=== PATIENT | female | born 1995 | race Caucasian/White ===

== ENCOUNTER 2023-07-31 08:38 | Outpatient (AMB) | payer OTHER, SELFPAY ==
--- NOTE | 2023-07-31 08:40 | A.OFFPC_ITS ---
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 Required: No Allergies Sulfa (Sulfonamide Antibiotics) [SULFA (SULFONAMIDE ANTIBIOTICS)] Allergy (Unknown, Unverified 07/31/23 08:48) unk Sulfa Allergy (Intermediate, Uncoded 07/31/23 08:48) Hives Medication List - Last Reconciled 07/31/23 by SAEN Lovell bupropion HCl 150 mg PO QAM dextroamphetamine-amphetamine 10 mg 0.5 - 1 tabs PO BID gabapentin mg PO DAILY PRN sertraline mg PO DAILY Tobacco use date assessed: 07/31/23 Dental Screening Dental Screen Date: 07/31/23 Did you have a dental visit in the last 12 months?: Yes Did you have a dental problem in the last 6 months where you did not have access to dental care?: No Was dental information given to patient?: Patient has dentist HPI MOBILE APPLICATION TESTER/ Requesing Physical HPI Details Patient is a 27-year-old female who presents today for physical exam as a new patient. Patient reports no PCP for a while now. Medical history significant for PTSD, depression, anxiety, ADHD. Mental health medications are prescribed by psychotherapist Dr. Banks and patient also has a therapist. Patient denies SI. Patient reports normal Pap smear 2020 at [facility]. Patient reports dental and eye exam within past year. Patient denies shortness of breath or chest pain. 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 [facility] Surgical History [place] teeth removed Family History Mother Lupus Father No problems noted. Maternal Grandmother Lupus Social History Housing: Apartment Patient Tobacco Use Status: Never used Tobacco service: No Current occupational status: employed Cognitive needs: No Hearing needs: No Vision needs: No Questionnaire PHQ-9 Over the last 2 weeks, how often have you been bothered by any of the following problems? 1. Little interest or pleasure in doing things: not at all 2. Feeling down, depressed, or hopeless: not at all 3. Trouble falling or staying asleep, or sleeping too much: not at all 4. Feeling tired or having little energy: not at all 5. Poor appetite or overeating: not at all 6. Feeling bad about yourself - or that you are a failure or have let yourself or your family down: not at all 7. Trouble concentrating on things, such as reading the newspaper or watching television: not at all 8. Moving or speaking so slowly that other people could have noticed. Or the opposite - being so fidgety or restless that you have been moving around a lot more than usual: not at all 9. Thoughts that you would be better off or of hurting yourself in some way: not at all Total score: 0 Depression Screening Interpretation: Negative 93433 - PHQ-9 Billing: Yes Source: Developed by Drs. Memo Rea, Maya Jean Baptiste, Matthew Jameson and colleagues, with an educational tiffanie from [employer]. Thrive Questionnaire Date Thrive assessed: 07/31/23 I am a: Patient What is your living situation today?: I have a steady place to live Within the past 12 months, did the food you bought not last and you didn't have the money to get more?: Never true Within the past 12 months, did you worry whether your food would run out before you got money to buy more?: Never true Currently or been in a relationship where the following occur: no concerns reported AUDIT C Alcohol Use Questionnaire (AUDIT-C) 1. How often do you have a drink containing alcohol?: 2-3 times a week 2. How many drinks containing alcohol do you have on a typical day when you are drinking?: 1 or 2 3. How often do you have six or more drinks on one occasion?: Never Total Score: 3 Score Reviewed/Action Taken: No DESIRAE-7 AMB Questionnaire DESIRAE-7 Date DESIRAE - 7 assessed: 07/31/23 Feeling nervous, anxious, or on edge: 0 = Not at all Not being able to stop or control worryin = Not at all Worrying too much about different things: 0 = Not at all Trouble relaxin = Not at all Being so restless that it is hard to sit still: 0 = Not at all Becoming easily annoyed or irritable: 0 = Not at all Feeling afraid as if something awful might happen: 0 = Not at all Total DESIRAE-7 score (0-4 normal; 5-9 mild; 10-14 moderate; 15-21 severe): 0 Source: Developed by Drs. Memo Rea, Maya Jean Baptiste, Matthew Jameson and colleagues, with an educational tiffanie from [employer]. DESIRAE-7 Assessment Billing DESIRAE-7 Assessment Tool: DESIRAE-7 Assessment 63948 Review of Systems Const Denies body aches, Denies chills, Denies fever(s) and Denies headache(s) Eyes Denies change in vision ENT Denies dizziness, Denies otalgia, Denies headache(s), Denies nasal discharge, Denies sinus pain and Denies sore throat Card Denies chest pain, Denies edema, Denies lightheadedness and Denies dyspnea Resp Denies cough, Denies dyspnea and Denies wheezing GI Denies abdominal pain, Denies constipation, Denies diarrhea, Denies nausea and Denies vomiting Denies dysuria Musc Denies myalgias Skin/Breast Denies rash Neuro Denies dizziness and Denies headache(s) Aller/Immun Denies wheezing Physical exam (Primary Care) Vital Signs: Last Vital Signs Pulse 62 07/31/23 08:41 BP 112/60 07/31/23 08:41 Pulse Ox 99 07/31/23 08:41 Oxygen Delivery Method Room Air 07/31/23 08:41 BMI result Body Mass Index 29.3 Tobacco/Smoking Status: Tobacco use Status Tobacco use date assessed 07/31/23 07/31/23 08:48 Patient Tobacco Use Status Never used Tobacco 07/31/23 08:48 PHQ-9: PHQ-9 Score PHQ-9: Total score 0 07/31/23 08:48 Depression Screening Interpretation: Negative Thrive Assessment: Date of Thrive Assessment Date Thrive assessed 07/31/23 07/31/23 08:48 Currently or been in a relationship where the following occur: no concerns repo rted Const General: cooperative and no acute distress Orientation/consciousness: patient oriented x3 HENMT Head: Yes normocephalic and Yes atraumatic Ears: TM's normal bilaterally Face and sinus: Yes sinuses nontender Mouth: oropharynx normal and moist mucous membranes Throat: Yes posterior oropharynx normal Eyes General: appearance normal, both eyes and all related structures Pupils: Equal, round and reactive pupils present Neck Neck: Yes normal visual inspection, Yes full ROM and Yes no lymphadenopathy Thyroid: Thyroid normal Resp Effort & Inspection: normal respiratory effort and able to speak in complete sentences Auscultation: clear to auscultation bilaterally, no crackles, no rales, no rhonchi and no wheezes Cardio Rate: regular rate Rhythm: regular rhythm Heart sounds: S1 normal heart sound present, S2 normal heart sound present and no murmurs GI Palpation (GI): Soft to palpation, not firm, nontender, no guarding, not rigid and no hepatosplenomegaly Auscultation: normal bowel sounds General: No CVA tenderness Back/Spine/Pelvis Back: No CVA tenderness Skin General skin exam: no rashes or lesions noted Neuro General: patient oriented x3 Cranial nerves: Yes Equal, round and reactive pupils present Gait exam (Neuro): Normal gait present Extrem General: Yes full ROM and No edema Assessment and Plan Assessment & Plan (1) Adult general medical exam: Code(s): Z00.00 - Encounter for general adult medical examination without abnormal findings Plan: Repeat in 1 year Blood work ordered (2) ADHD: Code(s): F90.9 - Attention-deficit hyperactivity disorder, unspecified type Plan: Continue to follow-up with psychotherapist Dr. Banks who prescribes mental health medications Continue to follow-up therapist (3) Anxiety: Code(s): F41.9 - Anxiety disorder, unspecified Plan: Continue to follow-up with psychotherapist Dr. Banks who prescribes mental health medications Continue to follow-up therapist (4) Depression: Code(s): F32.A - Depression, unspecified Qualifiers: Depression Type: other depression Qualified Code(s): F32.89 - Other specified depressive episodes Plan: Continue to follow-up with psychotherapist Dr. Banks who prescribes mental health medications Continue to follow-up therapist (5) PTSD (post-traumatic stress disorder): Code(s): F43.10 - Post-traumatic stress disorder, unspecified Plan: Continue to follow-up with psychotherapist Dr. Banks who prescribes mental health medications Continue to follow-up therapist Orders: Orders Vitamin D 25-OH Total Today F32.A - Depression, unspecified Complete Blood Count Auto Diff Today F32.A - Depression, unspecified Vitamin B12 and Folate Today F32.A - Depression, unspecified TSH reflex Free T4 Today F32.A - Depression, unspecified Comprehensive Met. Panel Today F32.A - Depression, unspecified Coding Level of Care Code New Pt Prev Care 18-39yr([id number] Diagnoses Adult general medical exam Z00.00 ADHD F90.9 Anxiety F41.9 Other depression F32.89 Depression Type: other depression PTSD (post-traumatic stress disorder) F43.10 Additional Codes DESIRAE-7 Assessment Billing - DESIRAE-7 Assessment Tool: DESIRAE-7 Assessment 74188 ([id number])
[2023-07-31 08:41] VITALS: BP 112/60; PULSE 62; O2SAT 99; BMI 29.3
== END 2023-07-31 09:02 | disposition home or self-care (01) ==
PROVIDERS: PCP Nurse Practitioner Family; Visit Provider Nurse Practitioner Family
DX: Z00.00 Encounter for general adult medical examination without abnormal findings (principal); F90.9 Attention-deficit hyperactivity disorder, unspecified type; F41.9 Anxiety disorder, unspecified; F43.10 Post-traumatic stress disorder, unspecified; F32.89 Other specified depressive episodes
CPT/HCPCS: 99385

== ENCOUNTER 2024-08-04 16:06 | Outpatient (AMB) | payer BC, SELFPAY ==
--- NOTE | 2024-08-04 16:08 | A.OFFPC_ITS ---
Vital Signs 08/04/24 16:10 Height 5 ft Weight 146 lb 2 oz BMI 28.5 BP 136/74 Blood Pressure Location Lt brachial Position Sitting Pulse 63 Pulse Source Pulse Oximeter Pulse Oximetry (%) 98 Oxygen Delivery Method Room Air Intake Visit Reasons: PE Intake Note: Patient is here today for a physical. Cosmetic Sales Advisor Required: No Sales Development Executive: Not Required per policy Accompanied by: Self / Same As Patient Allergies Sulfa (Sulfonamide Antibiotics) [SULFA (SULFONAMIDE ANTIBIOTICS)] Allergy (Unknown, Verified 08/04/24 16:24) unk Sulfa Allergy (Intermediate, Uncoded 08/04/24 16:24) Hives Medication List - Last Reconciled 08/04/24 by Pema Warner PA-C bupropion HCl XL 150 mg PO QAM clonidine HCl ER 0.1 mg PO DAILY gabapentin 100 mg PO DAILY PRN sertraline 100 mg PO DAILY Tobacco use date assessed: 08/04/24 Dental Screening Dental Screen Date: 08/04/24 Did you have a dental visit in the last 12 months?: No Did you have a dental problem in the last 6 months where you did not have access to dental care?: No Was dental information given to patient?: No HPI PE HPI Details 28-year-old female with past medical his tory of PTSD, anxiety, depression, ADHD last seen by nurse practitioner coming to the office for her physical exam. Patient states she has been having a cough at night for the last 2-3 months and does eat around 1-2 hours before bed. She also wakes up in the morning with yellowish phlegm and has to cough in the morning as well. She would also like to see a sock knitting machine operator because she has multiple moles that she would like evaluated. She follows with [facility] for all of her psychiatric diagnosis and treatment. [facility] Surgical History [place] teeth removed Family History (Updated 08/04/24 @ 16:09 by DINORA Chang) Mother Lupus Father No problems noted. Maternal Grandmother Lupus Social History (Updated 08/04/24 @ 16:09 by DINORA Chang) Housing: Apartment Alcohol intake: never Patient Tobacco Use Status: Never used Tobacco e-Cigarette/Vaping Use: Never Used Second Hand Smoke Exposure: No service: No Current occupational status: employed Cognitive needs: No Hearing needs: No Vision needs: Yes (Glasses) Female Reproductive History Menstrual control method: none History of abnormal pap smear: No Questionnaire PHQ-9 Over the last 2 weeks, how often have you been bothered by any of the following problems? 1. Little interest or pleasure in doing things: not at all 2. Feeling down, depressed, or hopeless: not at all 3. Trouble falling or staying asleep, or sleeping too much: several days 4. Feeling tired or having little energy: several days 5. Poor appetite or overeating: not at all 6. Feeling bad about yourself - or that you are a failure or have let yourself or your family down: not at all 7. Trouble concentrating on things, such as reading the newspaper or watching television: several days 8. Moving or speaking so slowly that other people could have noticed. Or the opposite - being so fidgety or restless that you have been moving around a lot more than usual: not at all 9. Thoughts that you would be better off or of hurting yourself in some way: not at all Total score: 3 Depression Screening Interpretation: Positive Depression Screening Follow-up: Existing condition and In treatment Depression Screening Done: Yes Source: Developed by Drs. Memo Rea, Maya Jean Baptiste, Matthew Jameson and colleagues, with an educational tiffanie from [employer]. Thrive Questionnaire Date Thrive assessed: 08/04/24 I am a: Patient What is your living situation today?: I have a steady place to live Within the past 12 months, did the food you bought not last and you didn't have the money to get more?: Never true Within the past 12 months, did you worry whether your food would run out before you got money to buy more?: Never true Do you have trouble paying for medicines?: No Do you have trouble getting transportation to medical appointments?: No Do you have trouble paying your heating and electricity bill?: No Do you have trouble taking care of your child, family member or friend?: No Do you have trouble with day-to-day activities such as bathing, preparing meals, shopping, managing finances, etc.?: No Are you currently unemployed and looking for a job?: No Are you interested in more education?: No Please select the resources that you would like help with: None Currently or been in a relationship where the following occur: No concerns reported THRIVE Score: 0 AUDIT C Alcohol Use Questionnaire (AUDIT-C) 1. How often do you have a drink containing alcohol?: Monthly or less 2. How many drinks containing alcohol do you have on a typical day when you are drinking?: 1 or 2 3. How often do you have six or more drinks on one occasion?: Less than monthly Total Score: 2 DESIRAE-7 AMB Questionnaire DESIRAE-7 Date DESIRAE - 7 assessed: 08/04/24 Feeling nervous, anxious, or on edge: 1 = Several days Not being able to stop or control worryin = Several days Worrying too much about different things: 1 = Several days Trouble relaxin = Several days Being so restless that it is hard to sit still: 1 = Several days Becoming easily annoyed or irritable: 1 = Several days Feeling afraid as if something awful might happen: 0 = Not at all Total DESIRAE-7 score (0-4 normal; 5-9 mild; 10-14 moderate; 15-21 severe): 6 Source: Developed by Drs. Memo Rea, Maya Jean Baptiste, Matthew Jameson and colleagues, with an educational tiffanie from [employer]. DESIRAE-7 Assessment Billing DESIRAE-7 Assessment Tool: DESIRAE-7 Assessment 63031 Review of Systems Const Denies body aches, Denies fatigue, Denies fever(s), Denies frequent falls, Denies headache(s) and Denies weakness Eyes Reports no additional complaints and Denies change in vision ENT Denies dysphagia, Denies dizziness, Denies facial pain, Denies headache(s), Denies nasal congestion and Denies odynophagia Card Denies chest pain, Denies syncope, Denies irregular heart rhythm, Denies leg edema, Denies lightheadedness and Denies dyspnea Resp Reports cough (Nighttime), Denies hemoptysis and Denies dyspnea GI Denies constipation, Denies dysphagia, Denies dyspepsia, Denies diarrhea, Denies nausea, Denies odynophagia and Denies vomiting Denies urinary frequency, Denies dysuria, Denies urinary hesitancy and Denies urinary urgency Musc Denies back pain and Denies myalgias Skin/Breast Reports as per HPI Neuro Denies dizziness, Denies syncope, Denies frequent falls, Denies headache(s) and Denies weakness Psych Reports no additional complaints Endo Denies fatigue Physical exam (Primary Care) Vital Signs: Last Vital Signs Pulse 63 08/04/24 16:10 BP 136/74 08/04/24 16:10 Pulse Ox 98 08/04/24 16:10 Oxygen Delivery Method Room Air 08/04/24 16:10 BMI result Body Mass Index 28.5 Tobacco/Smoking Status: Tobacco use Status Tobacco use date assessed 08/04/24 08/04/24 16:15 Patient Tobacco Use Status Never used Tobacco 08/04/24 16:09 e-Cigarette/Vaping Use Never Used 08/04/24 16:15 PHQ-9: PHQ-9 Score PHQ-9: Total score 3 08/04/24 16:15 Depression Screening Interpretation: Positive Depression Screening Follow-up: Existing condition and In treatment Thrive Assessment: Date of Thrive Assessment Date Thrive assessed 08/04/24 08/04/24 16:15 Currently or been in a relationship where the following occur: No concerns reported Const General: cooperative, healthy appearing, comfortable and no acute distress Orientation/consciousness: patient oriented x3 HENMT Head: Yes normocephalic Ears: hearing grossly normal bilaterally, external ears normal, TM's normal bilaterally and EAC's normal General nose exam: Normal external nose present Face and sinus: Yes normal facial exam and Yes sinuses nontender Mouth: Normal oral and palatal mucosa present and tongue normal Throat: Yes posterior oropharynx normal Eyes General: appearance normal, both eyes and all related structures Conjunctivae: conjunctivae normal Pupils: Equal, round and reactive pupils present EOM: EOMs intact bilaterally and No Nystagmus present Neck Neck: Yes normal visual inspection, Yes full ROM and Yes no lymphadenopathy Chest Chest palpation & inspection: normal inspection of the chest Resp Effort & Inspection: normal respiratory effort Auscultation: clear to auscultation bilaterally, no crackles, no rales, no rhonchi, no wheezes and breath sounds present Cardio Rate: regular rate Rhythm: regular rhythm Peripheral pulses: radial pulses present and dorsalis pedis present GI Inspection: Yes normal to inspection and No Abdominal wall edema Palpation (GI): Soft to palpation, not firm and nontender Auscultation: normal bowel sounds Rectal Exam - Female: deferred General: Yes no CVA tenderness Back/Spine/Pelvis Back: no CVA tenderness Skin General skin exam: no rashes or lesions noted Neuro General: patient oriented x3 Cranial nerves: Yes Equal, round and reactive pupils present, Yes Midline tongue present, Yes Ability to bilaterally elevate shoulders present and No Nystagmus present Gait exam (Neuro): Normal gait present Extrem General: Yes normal to inspection, Yes full ROM, No no pedal edema and No edema Psych Speech and movement: Normal speech and movement present Affect: normal affect Insight: Good insight present (Psych) Judgement: Good judgement present (Psych) Assessment and Plan Assessment & Plan (1) Multiple nevi: Code(s): D22.9 - Melanocytic nevi, unspecified Plan: Referral to Dermatology placed today. (2) ADHD: Code(s): F90.9 - Attention-deficit hyperactivity disorder, unspecified type Plan: Continue to follow with [facility] continue on current med regimen. (3) Anxiety: Code(s): F41.9 - Anxiety disorder, unspecified Plan: Continue to follow with [facility] continue on current med regimen. (4) Depression: Code(s): F32.A - Depression, unspecified Qualifiers: Depression Type: other depression Qualified Code(s): F32.89 - Other specified depressive episodes Plan: Continue to follow with [facility] continue on current med regimen. (5) PTSD (post-traumatic stress disorder): Code(s): F43.10 - Post-traumatic stress disorder, unspecified Plan: Continue to follow with [facility] continue on current med regimen. (6) Adult general medical exam: Code(s): Z00.00 - Encounter for general adult medical examination without abnormal findings Plan: Patient is up-to-date on all recommended routine screenings and vaccinations for her age. Updated blood work ordered today. Follow up in 3 months for re- evaluation of medication. Referral placed for aviation mechanic for routine Pap smears today. (7) GERD (gastroesophageal reflux disease): Code(s): K21.9 - Gastro-esophageal reflux disease without esophagitis Plan: Nighttime cough in safemaker phlegm production is most consistent with GERD presentation. We will trial famotidine as needed or daily for symptom management. If symptoms do not improve we can consider PFTs to evaluate for possible asthma. Avoid trigger foods such as citrus, tomato products, soda, caffeine, spicy foods and other foods that may be irritating to your stomach. Avoid laying flat 3-4 hours after eating and elevate the head of the bed 30 degrees to prevent acid from moving into the esophagus. Plan This note was constructed using voice recognition software. While every effort has been made to ensure accuracy and crown perforator operator, still areas may have been included sometimes these areas may affect the content or meeting of the given symptoms. Total time spent caring for the patient today was 30 minutes. This includes time spent before the visit reviewing the chart, time spent during the visit, and time spent after the visit and documentation. Orders: Orders Complete Blood Count Auto Diff Today Z00.00 - Encounter for general adult medical examination without abnormal findings Free T4 (Free Thyroxine) Today Z00.00 - Encounter for general adult medical examination without abnormal findings Vitamin D 25-OH (D2 and D3) Today Z00.00 - Encounter for general adult medical examination without abnormal findings TSH reflex Free T4 Today Z00.00 - Encounter for general adult medical examination without abnormal findings Comprehensive Met. Panel Today Z00.00 - Encounter for general adult medical examination without abnormal findings Vitamin B12 and Folate Today Z00.00 - Encounter for general adult medical examination without abnormal findings Referrals Dermatology Referral D22.9 - Melanocytic nevi, unspecified ENGINEERING MATHEMATICIAN Referral Z00.00 - Encounter for general adult medical examination without abnormal findings Medications: New famotidine 10 mg PO BEDTIME 30 tabs 2RF Coding Level of Care Code Est Pt Level 3 (54634) Est Pt Prev Care 18-39y(32455) Diagnoses Multiple nevi D22.9 ADHD F90.9 Anxiety F41.9 Other depression F32.89 Depression Type: other depression PTSD (post-traumatic stress disorder) F43.10 Adult general medical exam Z00.00 GERD (gastroesophageal reflux disease) K21.9 Additional Codes DESIRAE-7 Assessment Billing - DESIRAE-7 Assessment Tool: DESIRAE-7 Assessment 52015 ([id number])
[2024-08-04 16:10] VITALS: BP 136/74; PULSE 63; O2SAT 98; BMI 28.5
== END 2024-08-04 16:36 | disposition home or self-care (01) ==
DX: Z00.00 Encounter for general adult medical examination without abnormal findings (principal); D22.9 Melanocytic nevi, unspecified; F90.9 Attention-deficit hyperactivity disorder, unspecified type; F41.9 Anxiety disorder, unspecified; F32.89 Other specified depressive episodes; F43.10 Post-traumatic stress disorder, unspecified; K21.9 Gastro-esophageal reflux disease without esophagitis

== ENCOUNTER → 2024-08-04 16:06 | Outpatient (BNVA) | payer BC, SELFPAY | DX: Z00.01 Encounter for general adult medical examination with abnormal findings (principal); K21.9 Gastro-esophageal reflux disease without esophagitis; D22.9 Melanocytic nevi, unspecified; F90.9 Attention-deficit hyperactivity disorder, unspecified type; F41.9 Anxiety disorder, unspecified; F32.89 Other specified depressive episodes; F43.10 Post-traumatic stress disorder, unspecified; Z79.899 Other long term (current) drug therapy | CPT/HCPCS: 96127 ==

== ENCOUNTER 2024-10-07 13:20 | Outpatient (AMB) | payer BC, SELFPAY ==
[2024-10-07 13:27] VITALS: BP 124/64; BMI 29.8
--- NOTE | 2024-10-07 13:27 | MHC.OFFVIS ---
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 She in a relationship with a partner for several years and has no worries about STDs is open to testing during this visit and will be going to the lab after this for general lab work and would like full STI testing as well. Currently she uses condoms for control I asked her if she would like plan B prescriptions sent to pharmacy and she very much would like that. She would not welcome a at this particular moment. She is open to talking about more reliable methods of control and she is heard of IUDs is considering. She does get pretty heavy crampy periods especially the 1st 3 days of 5. She tends to use menstrual cup or menstrual this and sometimes tampons to augment menstrual care.. She is healthy in shape. She moved to the [place] from [place] to [facility] and has stayed. She is active in her [employer]. 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 [facility] Surgical History [place] teeth removed Family History (Updated 08/04/24 @ 16:09 by DINORA Chang) Mother Lupus Father No problems noted. Maternal Grandmother Lupus Social History (Updated 08/04/24 @ 16:09 by DINORA Chang) Housing: Apartment Alcohol intake: never Patient Tobacco Use Status: Never used Tobacco e-Cigarette/Vaping Use: Never Used Second Hand Smoke Exposure: No service: No Current occupational status: employed Cognitive needs: No Hearing needs: No Vision needs: Yes (Glasses) Female Reproductive History Menstrual Age of Menarche: 15 Date of last menstrual period: 09/21/24 control method: none Total pregnancies: 0 History of abnormal pap smear: No History of STI: Yes (Genital warts, no positive HPV on pap) Physical Exam Vital Signs: Last Vital Signs BP 124/64 10/07/24 13:27 BMI result Body Mass Index 29.8 Const General: healthy appearing, comfortable, no acute distress, well developed and alert Nutritional Appearance: average body habitus Orientation/consciousness: patient oriented x3 Limitations: no limitations HEENT Head: Yes normocephalic Neck Neck: Yes normal visual inspection Chest Chest palpation & inspection: normal inspection of the chest Breast/axilla inspection: normal inspection of the breasts and normal inspection of the axillae Breast/axilla palpation: normal palpation of the breasts and normal palpation of the axillae Resp Effort & Inspection: normal respiratory effort GI Inspection: Yes normal to inspection, No Abdominal wall edema and No distended Palpation (GI): Soft to palpation and nontender Other: External within normal vagina is and moist. Cervix is nulliparous moist healthy normal mucus. Pap smear taken as well as testing for gonorrhea chlamydia trichomoniasis Nadia and BV. Cervix gapes slightly at external os cervix is long close thick nontender uterus difficult to feel completely probably midposition mobile nontender adnexa nontender no enlargement organs palpable good muscle tone. Good tone Kegel as well. General: Yes bladder normal to palpation External Female Exam: normal external appearance and normal appearance of the urethra Speculum Exam - Vagina: normal appearance of the vagina, normal palpation and normal vaginal discharge Speculum Exam - Cervix: normal appearance of the cervix, normal palpation and nontender Bimanual exam- vagina & uterus: normal bimanual exam, normal palpation, uterine size normal, bladder normal to palpation, consistency normal, normal palpation, uterine mobility normal, uterine shape normal, No Cervical tenderness present, non-tender and no cervical motion tenderness Bimanual Exam- Adnexa, other: normal adnexae, no masses, normal and No adnexal tenderness Neuro General: patient oriented x3 Assessment & Plan Assessment & Plan (1) Encounter for screening examination for sexually transmitted disease: Code(s): Z11.3 - Encounter for screening for infections with a predominantly sexual mode of transmission Category: Medical Plan -----Discussed in this visit the following: healthy balanced diet, regular and consistent exercise, getting recommended health screens, doing the best she can for her particular health concerns, kegel exercises, pap smear screening and followup recommendations, mammography screening and SBE, normal changes in cycles in her life stage--- .-I reviewed with the patient, all of the currently common used methods of control that are available. We reviewed how they work in the body, how they are taken, common side effects, uncommon side effects, precautions, and contraindications. -Discussed also factors that influence their effectiveness and use, and womens satisfaction with the method. -Discussed how each are used, and drawbacks of each method as well. -Methods covered included: condoms, control pills, control patches, control rings, Depo-Provera, Nexplanon, Mirena and Kyleena IUDs, and ParaGard IUDs. All of the above methods were covered in great detail including their side effect profiles and common experiences that women have and ways to mitigate against the negative experiences including attention to diet and exercise patient's with bleeding challenges that may occur her and efforts to time the initiation of the method to this start of the menstrual period. She maybe interested either Kyleena or she is going to think about it for a while for now I am sending prescription for Plan B to her pharmacy. Discussed that if she wanted either Kyleena or Mirena really would be helpful to insert it in the 1st 3 days of her period.. Most and discussed the physiological reasons for that that is uterus is already cramping cervix will be soften to allow passage of menses there were easier insertion instruments for insertion of the do. Discussed that is also maybe possible to consider prescription of misoprostol that she could place in vagina 6 hours prior to the planned insertion time, but this would be in addition to planning it in the 1st 3 days of her menses discussed also the even if she got her period called right away most likely have to be the day because of scheduling. She did share that she has decreased libido currently she thinks it is because of all of her antidepressants though she has been she is on the right dose for her. discussed that often times the hormonal methods control can also contribute to decreased libido though not as much as the antidepressants. Orders: Orders Bacterial Vaginosis Panel Today Z01.419 - Encounter for gynecological examination (general) (routine) without abnormal findings Pap Smear Today Z01.419 - Encounter for gynecological examination (general) (routine) without abnormal findings CT NG by PCR Today [id number] - Encounter for gynecological examination (general) (routine) without abnormal findings Hepatitis B Surface Antigen Today Z11.3 - Encounter for screening for infections with a predominantly sexual mode of transmission Hepatitis C Antibody Today Z11.3 - Encounter for screening for infections with a predominantly sexual mode of transmission HIV Ab/Ag Today Z11.3 - Encounter for screening for infections with a predominantly sexual mode of transmission Syphilis Screen Today Z11.3 - Encounter for screening for infections with a predominantly sexual mode of transmission Medications: New levonorgestrel (Plan B One-Step) 1.5 mg PO ONCE 1 tab 4RF Coding Level of Care Code New Pt Prev Care 18-39yr([id number] Diagnoses Encounter for screening examination for sexually transmitted disease Z11.3
== END 2024-10-07 14:33 | disposition home or self-care (01) ==
PROVIDERS: Visit Provider Advanced Practice Midwife
DX: Z01.419 Encounter for gynecological examination (general) (routine) without abnormal findings (principal); Z11.3 Encounter for screening for infections with a predominantly sexual mode of transmission
CPT/HCPCS: 99385

== ENCOUNTER 2024-10-07 13:20 | Outpatient (REF) | payer BC, SELFPAY ==
[2024-10-08 10:25] LABS: HPV 16,18/45 See PAP report
== END 2024-10-07 13:21 | disposition home or self-care (01) ==
LOC: HO.LNP 13:20
PROVIDERS: Visit Provider Advanced Practice Midwife
DX: Z01.419 Encounter for gynecological examination (general) (routine) without abnormal findings (principal); Z11.51 Encounter for screening for human papillomavirus (HPV)
CPT/HCPCS: 87624; 88175

== ENCOUNTER 2024-10-07 14:29 | Outpatient (REF) | payer BC, SELFPAY ==
[2024-10-07 16:33] LABS: MANUAL DIFF FLAG NO
[2024-10-07 16:41] LABS: Basophils Percent Auto 0.6 % (0-2); Eosinophils Absolute Auto 0.2 X10*3/uL (0.0-0.4); Eosinophils Percent Auto 3.2 % (0-4); Hematocrit 37.4 % (37.0-47.0); Hemoglobin 12.5 g/dl (12.0-16.0); Imm Gran Abs Auto 0.02 X10*3/uL (0.00-0.03); Imm Gran Pct Auto 0.3 % (0.0-0.4); Lymphocytes Absolute Auto 1.9 X10*3/uL (1.2-4.9); Lymphocytes Percent Auto 28.8 % (20-40); Mean Corpuscular HGB Conc 33.4 g/dl (31.0-35.0); Mean Corpuscular Hemoglobin 29.8 pg (27.0-33.0); Mean Corpuscular Volume 89.3 fL (80.0-98.0); Mean Platelet Volume 9.9 fL (9.4-12.3); Monocytes Absolute Auto 0.5 X10*3/uL (0.1-1.2); Monocytes Percent Auto 7.1 % (2-11); Neutrophils Absolute Auto 3.9 x10*3/uL (2.0-8.3); Platelet Count 260 X10*3/uL (160-400); Red Blood Count 4.19 X10*6/uL (4.20-5.50); Red Cell Distribution Width 12.5 % (11.0-16.0); White Blood Count 6.5 X10*3/uL (4.8-10.8)
[2024-10-07 17:20] LABS: Alanine Aminotransferase 19 U/L (0-31); Albumin Level 4.4 g/dL (3.5-5.0); Alkaline Phosphatase 86 U/L (39-117); Anion Gap 11 (12-20); Aspartate Amino Transferase 21 U/L (5-31); Bilirubin Total 0.5 mg/dL (0.0-1.0); Blood Urea Nitrogen 12 mg/dL (9-16); Calcium 10.1 mg/dL (8.4-10.2); Carbon Dioxide 29 mmol/L (22-29); Chloride 105 mmol/L (96-108); Estimated Glomerular Filt Rate > 60; Glucose Random 87 mg/dL (60-115); Potassium 4.2 mmol/L (3.3-5.1); Sodium 141 mmol/L (135-145); Total Protein 7.4 g/dL (6.5-8.0)
[2024-10-07 17:24] LABS: TSH reflex Free T4 1.39 uIU/mL (0.32-4.0)
[2024-10-07 17:29] LABS: Folate 9.5 ng/mL (> or = 4.0); Vitamin B12 1231 pg/mL (200-900)
[2024-10-08 03:59] LABS: Syphilis Screen Nonreactive (Nonreactive)
[2024-10-08 04:27] LABS: HBsAGNum1 0.38 S/CO (0.00-0.99); HIV AB/AG Nonreactive (Nonreactive); HIV Num 1 0.55 S/CO (0.00-0.99); Hepatitis B Surface Antigen Negative (Negative); ~Hepatitis C Antibody Nonreactive (Nonreactive)
[2024-10-08 07:12] LABS: CT PCR NOT DETECTED (Not Detect.); NG PCR NOT DETECTED (Not Detect.)
[2024-10-08 11:43] LABS: Bacterial Vaginosis PCR NEGATIVE (Negative); Candida Group PCR NOT DETECTED (Not Detect); Candida glab krusei PCR NOT DETECTED (Not Detect); Trichomonas vaginalis PCR NOT DETECTED (Not Detect)
[2024-10-12 16:22] LABS: Vitamin D 25-OH, D2 <4 ng/mL; Vitamin D 25-OH, D3 36 ng/mL; Vitamin D 25-OH, Total 36 ng/mL (30-100)
== END 2024-10-07 14:30 | disposition home or self-care (01) ==
LOC: HO.HHCL 14:29
PROVIDERS: Visit Provider Advanced Practice Midwife
DX: Z01.419 Encounter for gynecological examination (general) (routine) without abnormal findings (principal); Z11.3 Encounter for screening for infections with a predominantly sexual mode of transmission; Z87.42 Personal history of other diseases of the female genital tract
CPT/HCPCS: 0352U; 36415; 80053; 82306; 82607; 82746; 84439; 84443; 85025; 86780; 86803; 87340; 87389; 87491; 87591

== ENCOUNTER 2024-11-03 14:43 | Outpatient (AMB) | payer BC, SELFPAY ==
--- NOTE | 2024-11-03 14:49 | A.OFFPC_ITS ---
Vital Signs 11/03/24 14:51 Height 5 ft Weight 151 lb 2 oz BMI 29.5 BP 110/60 Blood Pressure Location Lt brachial Position Sitting Pulse 74 Pulse Source Pulse Oximeter Pulse Oximetry (%) 100 Oxygen Delivery Method Room Air Intake Visit Reasons: 3mth f/u Intake Note: Patient is here to follow up on GERD, ADHD. Pt decline flu shot today Candle Maker Required: No Bulb Planter: Not Required per policy Accompanied by: Self / Same As Patient Allergies Sulfa (Sulfonamide Antibiotics) [SULFA (SULFONAMIDE ANTIBIOTICS)] Allergy (Unknown, Verified 11/03/24 14:50) unk Sulfa Allergy (Intermediate, Uncoded 11/03/24 14:50) Hives Medication List - Last Reconciled 11/03/24 by Pema Warner PA-C bupropion HCl XL 150 mg PO QAM clonidine HCl ER 0.1 mg PO DAILY famotidine 10 mg PO BEDTIME gabapentin 100 mg PO DAILY PRN levonorgestrel (Plan B One-Step) 1.5 mg PO ONCE sertraline 100 mg PO DAILY Tobacco use date assessed: 11/03/24 Dental Screening Dental Screen Date: 08/04/24 HPI 3mth f/u HPI Details 29-year-old female with past medical his tory of PTSD, anxiety, depressi on, ADHD last seen July 2024 coming in for follow up.? At her last visit she was started on famotidine 10 mg for management GERD. Patient tells us today the famotidine has been helping with the reflux. Initially she was having a cough primarily at nights and in the mornings when she 1st woke up however now she finds she has a cough throughout the day when around allergens. She states when she is in old buildings or around note allergens she will have chest tightness and a cough along with shortness of breath that we will typically resolve with allergen being removed. [facility] Surgical History [place] teeth removed Family History Mother Lupus Father No problems noted. Maternal Grandmother Lupus Social History Housing: Apartment Alcohol intake: never Patient Tobacco Use Status: Never used Tobacco e-Cigarette/Vaping Use: Never Used Second Hand Smoke Exposure: No service: No Current occupational status: employed Cognitive needs: No Hearing needs: No Vision needs: Yes (Glasses) Female Reproductive History Menstrual Age of Menarche: 15 Questionnaire Thrive Questionnaire Date Thrive assessed: 08/04/24 I am a: Patient What is your living situation today?: I have a steady place to live Within the past 12 months, did the food you bought not last and you didn't have the money to get more?: Never true Within the past 12 months, did you worry whether your food would run out before you got money to buy more?: Never true Do you have trouble paying for medicines?: No Do you have trouble getting transportation to medical appointments?: No Do you have trouble paying your heating and electricity bill?: No Do you have trouble taking care of your child, family member or friend?: No Do you have trouble with day-to-day activities such as bathing, preparing meals, shopping, managing finances, etc.?: No Are you currently unemployed and looking for a job?: No Are you interested in more education?: No Please select the resources that you would like help with: None Currently or been in a relationship where the following occur: No concerns reported THRIVE Score: 0 DESIRAE-7 AMB Questionnaire DESIRAE-7 Date DESIRAE - 7 assessed: 08/04/24 Source: Developed by Drs. Memo Rea, Maya Jean Baptiste, Matthew Jameson and colleagues, with an educational tiffanie from [employer]. Review of Systems Const Denies body aches, Denies chills, Denies fever(s), Denies headache(s) and Denies poor appetite Eyes Reports no additional complaints ENT Denies dizziness and Denies headache(s) Card Details: Chest tightness around allergens Denies chest pain, Denies syncope, Denies edema, Denies irregular heart rhythm, Denies lightheadedness and Reports dyspnea (Occasional) Resp Reports cough and Reports dyspnea (Occasional) GI Denies nausea and Denies vomiting Reports no additional complaints Musc Reports no additional complaints and Denies abnormal gait Skin/Breast Reports system reviewed and no additional complaints, except as documented Neuro Denies abnormal gait, Denies dizziness, Denies syncope and Denies headache(s) Psych Reports no additional complaints Physical exam (Primary Care) Vital Signs: Last Vital Signs Pulse 74 11/03/24 14:51 BP 110/60 11/03/24 14:51 Pulse Ox 100 11/03/24 14:51 Oxygen Delivery Method Room Air 11/03/24 14:51 BMI result Body Mass Index 29.5 Tobacco/Smoking Status: Tobacco use Status Tobacco use date assessed 11/03/24 11/03/24 14:55 Patient Tobacco Use Status Never used Tobacco 11/03/24 14:55 e-Cigarette/Vaping Use Never Used 11/03/24 14:55 Thrive Assessment: Date of Thrive Assessment Date Thrive assessed 08/04/24 11/03/24 14:55 Currently or been in a relationship where the following occur: No concerns reported Const General: cooperative, healthy appearing, comfortable and no acute distress Orientation/consciousness: patient oriented x3 HENMT Head: Yes normocephalic Ears: hearing grossly normal bilaterally General nose exam: Normal external nose present Eyes General: appearance normal, both eyes and all related structures Conjunctivae: conjunctivae normal Neck Neck: Yes full ROM and Yes no lymphadenopathy Resp Effort & Inspection: normal respiratory effort Auscultation: clear to auscultation bilaterally, no crackles, no rales, no rhonchi and no wheezes Cardio Rate: regular rate Rhythm: regular rhythm Skin General skin exam: no rashes or lesions noted Neuro General: patient oriented x3 Gait exam (Neuro): Normal gait present Extrem General: Yes normal to inspection, Yes full ROM and No edema Psych Affect: normal affect Attitude: cooperative Insight: Good insight present (Psych) Judgement: Good judgement present (Psych) Coding Level of Care Code Est Pt Level 3 (18737) Diagnoses Chronic cough R05.3 GERD (gastroesophageal reflux disease) K21.9 Anxiety F41.9 Assessment & Plan Assessment & Plan (1) Chronic cough: Code(s): R05.3 - Chronic cough Category: Medical Plan: Cough consistent with possible asthma. Ordered for pulmonary function testing and sent rescue inhaler in the event patient has shortness of breath that does not resolve. Advised patient to take [id number] antihistamine daily to prevent coughing attacks. Reviewed red flag symptoms and when to present for re-evaluation. Also sent referral for allergy testing. (2) GERD (gastroesophageal reflux disease): Code(s): K21.9 - Gastro-esophageal reflux disease without esophagitis Category: Medical Plan: Avoid trigger foods such as citrus, tomato products, soda, caffeine, spicy foods and other foods that may be irritating to your stomach. Avoid laying flat 3-4 hours after eating and elevate the head of the bed 30 degrees to prevent acid from moving into the esophagus. Continue on famotidine. Feels her symptoms have improved at this time. (3) Anxiety: Comment: Owen Psych Code(s): F41.9 - Anxiety disorder, unspecified Category: Medical Plan: Continue to follow with numerous Psychiatry and counselor and continue on current medication. Plan This note was constructed using voice recognition software. While every effort has been made to ensure accuracy and kickboxing instructor, still areas may have been included sometimes these areas may affect the content or meeting of the given symptoms. Total time spent caring for the patient today was 20 minutes. This includes time spent before the visit reviewing the chart, time spent during the visit, and time spent after the visit and documentation. Orders: Orders PFT pulmonary function test Today R05.3 - Chronic cough Referrals Allergy & Immunology Referral R05.3 - Chronic cough Medications: New albuterol sulfate 90 mcg/actuation 1 inh inhalation QID PRN 6.7 grams 0RF shortness of breath or wheezing fexofenadine 180 mg PO DAILY 30 tabs 2RF
[2024-11-03 14:51] VITALS: BP 110/60; PULSE 74; O2SAT 100; BMI 29.5
== END 2024-11-03 15:28 | disposition home or self-care (01) ==
DX: R05.3 Chronic cough (principal); K21.9 Gastro-esophageal reflux disease without esophagitis; F41.9 Anxiety disorder, unspecified

== ENCOUNTER 2024-12-10 14:45 | Outpatient (REF) | payer BC, SELFPAY ==
--- NOTE | 2024-12-10 14:57 | PFT_ITS ---
Indication: Cough Spirometry [FEV1 to FVC 66% pre bronchodilators and 75% post bronchodilators. FEV1 3.2 L; FVC 4.25 L. There was a significant response to bronchodilators noted.] Lung Volumes [Total lung capacity 115% predicted; residual volume 92% predicted] Diffusion Capacity [DLCO 96% predicted] Comparisons [none] Interpretation [There is a reversible obstructive ventilatory defect consistent with diagnosis of asthma. Significant response to bronchodilators noted. Significant small airways disease noted again due to small airways disease from asthma. Lung volumes demonstrated trend of hyperinflation due to the small airways disease. Diffusing capacity is within normal limits.] MTDD
== END 2024-12-10 14:46 | disposition home or self-care (01) ==
LOC: HO.RESP 14:45
DX: R05.3 Chronic cough (principal)
CPT/HCPCS: 94010; 94640; 94727; 94729

== ENCOUNTER → 2024-12-10 14:57 | Outpatient (BNV) | payer BC, SELFPAY | PROVIDERS: Visit Provider Hospitalist | DX: R05.3 Chronic cough (principal) | CPT/HCPCS: 94060; 94727; 94729 ==

== ENCOUNTER 2024-12-14 21:40 | Emergency (ER) | payer BC, SELFPAY ==
--- NOTE | ~2024-12-14 | XR_ITS ---
CLINICAL HISTORY: dyspnea cough congestion 2 view chest x-ray Comparison: None Findings: No consolidation or effusion. Heart size is normal. No acute fracture. IMPRESSION: 1. No acute findings. This document has been electronically signed by: Suzan Lopes MD on 12/14/2024 22:57:05
[2024-12-14 21:48] VITALS: BP 119/53; PULSE 73; RESP 20; TEMP 37.1; O2SAT 95; BMI 28.9
[2024-12-14 22:39] LABS: IDNOW Serial# 6674DD1D; Strep A Nucleic Acid Negative (Negative)
[2024-12-14 22:50] LABS: Influenza A PCR NEGATIVE (Negative); Influenza B PCR NEGATIVE (Negative); Resp Syncy Virus RNA Qual PCR NEGATIVE (Negative); SARS COV2 PCR INHOUSE NEGATIVE (Negative)
--- NOTE | 2024-12-15 01:59 | ED_ITS ---
HPI - General Adult General Chief complaint: Upper Respiratory Symptoms Stated complaint: sob,congested cough/asthma Time Seen by Provider: 12/15/24 01:08 Source: patient Limitations: no limitations History of Present Illness ED Provider: Sugar White PA-C HPI narrative: 29-year-old female with a new diagnosis of asthma, presents with worsening viral symptoms over the past 3-4 days. Patient states over the past month, she has had constant nasal congestion, dry cough with wheezing. She was seen by primary care, had pulmonary function testing, she was diagnosed with asthma. She uses an albuterol rescue inhaler and a daily inhaled steroid. Over the past 4 days, she has been having to use her albuterol more frequently than is instructed. Denies fever. 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 Data Home Medications ?Medication ?Instructions ?Recorded ?Confirmed bupropion HCl 150 mg 24 hr tablet, 150 mg PO QAM 07/31/23 11/03/24 extended release clonidine HCl 0.1 mg 0.1 mg PO DAILY 08/04/24 11/03/24 tablet,extended release,12 hr gabapentin 100 mg capsule 100 mg PO DAILY PRN 08/04/24 11/03/24 sertraline 100 mg tablet 100 mg PO DAILY 08/04/24 11/03/24 Previous Rx's ?Medication ?Instructions ?Recorded famotidine 10 mg tablet 10 mg PO BEDTIME #30 tabs 08/04/24 levonorgestrel 1.5 mg tablet (Plan 1.5 mg PO ONCE #1 tab 10/07/24 B One-Step) albuterol sulfate 90 mcg/actuation 1 inh inhalation QID PRN shortness 11/03/24 aerosol inhaler of breath or wheezing #6.7 grams fluticasone propionate 44 1 puff inhalation BID #10.6 grams 12/11/24 mcg/actuation HFA aerosol inhaler loratadine 10 mg capsule (Allergy 10 mg PO DAILY #90 caps 12/11/24 Relief (loratadine)) prednisone 20 mg tablet 40 mg (2 x 20 mg) PO DAILY #8 tabs 12/15/24 Allergies Allergy/AdvReac Type Severity Reaction Status Date / Time Sulfa (Sulfonamide Allergy Unknown unk Verified 12/14/24 21:50 Antibiotics) [SULFA (SULFONAMIDE ANTIBIOTICS)] Sulfa Allergy Intermediate Hives Uncoded 11/03/24 14:50 Review of Systems Review of Systems: Yes all other systems are reviewed and are negative Constitutional: Constitutional: Denies fatigue and Denies fever(s) ENT: Reports nasal congestion Cardiovascular: Cardiovascular: Denies chest pain and Denies dyspnea Respiratory: Respiratory: Denies chest congestion, Reports cough, Denies dyspnea and Reports wheezing Gastrointestinal: Gastrointestinal: Denies nausea and Denies vomiting Endocrine: Endocrine: Denies fatigue Allergic/Immunologic: Allergic/Immunologic: Reports wheezing PMFSH Past Medical History Attestation statement: The following information was validated with the patient. Surgical History [place] teeth removed Family History Family History Mother Lupus Father No problems noted. Maternal Grandmother Lupus Social History Social History Housing: Apartment Alcohol intake: never Patient Tobacco Use Status: Never used Tobacco e-Cigarette/Vaping Use: Never Used Second Hand Smoke Exposure: No Advance Directives: No Advance Directives Information Provided: Yes Do you have a plan to hurt others: No Plan service: No Current occupational status: employed Cognitive needs: No Hearing needs: No Vision needs: Yes (Glasses) Physical Exam ED Vital Signs: Vital Signs - 24 hr 12/14/24 21:48 12/15/24 02:06 Temperature 98.8 F Pulse Rate 73 73 Respiratory Rate 20 20 Blood Pressure 119/53 L Pulse Oximetry 95 Oxygen Delivery Method Room Air BMI result Body Mass Index 28.9 Const Other: Alert well-appearing Orientation/consciousness: patient oriented x3 Resp Other: Nonlabored respirations, faint , scan expiratory wheezes noted posterior bee Cardio Other: Normal peripheral perfusion Skin Other: Warm dry no rash Neuro General: patient oriented x3, no focal motor deficits and CN's II-XI intact bilaterally Psych Other: Calm Medications Administered Discontinued Medications Generic Name Dose Route Start Last Admin Trade Name Freq PRN Reason Stop Dose Admin Albuterol Sulfate 7.5 mg 12/15/24 01:58 12/15/24 02:05 Albuterol Sulfate (0.083%) 2.5 Mg/3 Ml Vial.Neb INHALE 12/15/24 01:59 7.5 mg ONCE ONE Administration Medical Decision Making Medical Decision Making MDM Narrative: 29-year-old female with a new diagnosis of asthma, presents with worsening viral symptoms over the past 3-4 days. Patient states over the past month, she has had constant nasal congestion, dry cough with wheezing. She was seen by primary care, had pulmonary function testing, she was diagnosed with asthma. She uses an albuterol rescue inhaler and a daily inhaled steroid. Over the past 4 days, she has been having to use her albuterol more frequently than is instructed. Denies fever. 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 Problem: New asthma History: Per patient I have considered the following differential diagnoses: Asthma exacerbation, viral syndrome, pneumonia Plan: Here with a mild asthma exacerbation. Viral panel and chest x-ray were obtained from triage. We will give an updraft, send with a steroid for her to start in the morning. I have independently reviewed the following tests: Labs: Viral panel next Chest x-ray:indings: No consolidation or effusion. Heart size is normal. No acute fracture. IMPRESSION: 1. No acute findings. This document has been electronically signed by: Suzan Lopes MD on 12/14/2024 22:57:05 Lab Data Labs: Lab Results 12/14/24 Range/Units 22:03 Influenza Type A (PCR) NEGATIVE (Negative) Influenza Type B (PCR) NEGATIVE (Negative) RSV RNA Qual (PCR) NEGATIVE (Negative) SARS-CoV-2 RNA (RT-PCR) NEGATIVE (Negative) S. pyogenes GrpA RENETTA Negative (Negative) Discharge Plan Discharge Clinical Impression: Asthma exacerbation Patient Disposition: Home, Self-Care Instructions: Asthma (ED) Additional Instructions: You are being treated for a mild asthma exacerbation. See home care instructions. Use your albuterol as directed. Take the steroid as directed, take it in the morning. You were screened for influenza a and B, RSV and COVID, the viral panel was negative. The chest x-ray is clear you do not have pneumonia. For your ongoing nasal congestion, a cool mist humidifier may help to alleviate the congestion. You could also use [id number] saline nasal sprays. Follow up with your primary care provider as needed. Prescriptions: New prednisone 20 mg tablet 40 mg PO DAILY Qty: 8 0RF No Action fluticasone propionate 44 mcg/actuation HFA aerosol inhaler 1 puff inhalation BID Qty: 10.6 2RF Rx Instructions: administer with spacer Allergy Relief (loratadine) 10 mg capsule 10 mg PO DAILY Qty: 90 2RF bupropion HCl 150 mg tablet extended release 24 hr 150 mg PO QAM gabapentin 100 mg capsule 100 mg PO DAILY PRN sertraline 100 mg tablet 100 mg PO DAILY clonidine HCl 0.1 mg tablet extended release 12 hr 0.1 mg PO DAILY famotidine 10 mg tablet 10 mg PO BEDTIME Qty: 30 2RF levonorgestrel [Plan B One-Step] 1.5 mg tablet 1.5 mg PO ONCE Qty: 1 4RF albuterol sulfate 90 mcg/actuation HFA aerosol inhaler 1 inh inhalation QID PRN (Reason: shortness of breath or wheezing) Qty: 6.7 0RF Stand Alone Forms: Work/School Release Print Language: Cypriot
[2024-12-15] MEDS: Albuterol Sulfate (0.083%) 2.5 MG/3 ML VIAL.NEB 7.5 MG INHALE (02:05)
[2024-12-15 02:06] VITALS: PULSE 73; RESP 20; O2SAT 98
[2024-12-15 02:56] VITALS: BP 00/00; PULSE 0; RESP 0; TEMP -17.7; TEMP 0
== END 2024-12-15 02:56 | disposition home or self-care (01) ==
PROVIDERS: Emergency Provider Emergency Medicine
DX: J45.901 Unspecified asthma with (acute) exacerbation (principal); Z03.818 Encounter for observation for suspected exposure to other biological agents ruled out
CPT/HCPCS: 0241U; 71046; 87651; 94640; 94664; 99283; 99284

== ENCOUNTER → 2024-12-14 22:20 | Outpatient (BNV) | payer BC, SELFPAY | PROVIDERS: Visit Provider Radiology Diagnostic Radiology | DX: R06.00 Dyspnea, unspecified (principal); R05.9 Cough, unspecified | CPT/HCPCS: 71046 ==

== ENCOUNTER 2025-01-04 15:27 | Outpatient (AMB) | payer BC, SELFPAY ==
--- OUTSIDE RECORDS SUMMARY | 2025-01-04 15:29 | XMS_ITS | Clinical Summary ---
Author Organization [facility] Address [address] [place] [address] Care Team Providers Care Workday Consultant Name Role Phone Unavailable Primary Care Provider Unavailabl e Social History Tobacco Use Types Packs/Day Years Used Date Smoking Tobacco: Never Assessed Comments Unknown Sex and Gender Information Value Date Recorded Sex Assigned at Not on file Legal Sex Female 1:16 PM EST Gender Identity Not on file Sexual Orientation Not on file Plan of Treatment Health Maintenance Due Date Last Done Comments DTaP,Tdap,and Td Vaccines (1 - Tdap) 2016 Hepatitis B Vaccines (1 of 3 - 19+ 3-dose series) 2016 Cervical Cancer Screening: P ap Smear 2018 COVID-19 Vaccine ( - 2023-2 5 season) 2024 Influenza Vaccine (#1) 2024 HIB Vaccines Aged Out No longer eligi ble based on patient's age to complete this topic HPV Vaccines Aged Out No longer eligi ble based on patient's age to complete this topic Hepatitis A Vaccines Aged Out No long er eligible based on patient's age to complete this topic IPV Vaccines Aged Out No longer eligi ble based on patient's age to complete this topic MMR Vaccines Aged Out No longer eligi ble based on patient's age to complete this topic Meningococcal ACWY Vaccine Aged Out N o longer eligible based on patient's age to complete this topic Meningococcal B Vacine Aged Out No lo nger eligible based on patient's age to complete this topic Pneumococcal Vaccine: Pediat rics (0 to 5 Years) and At-Risk Patients (6 to 64 Years) Aged Out No longer eligible b ased on patient's age to complete this topic RSV Immunization Patients Un steve 20 months Aged Out No longer eligible b ased on patient's age to complete this topic Varicella Vaccines Aged Out No longer eligible based on patient's age to complete this topic
--- NOTE | 2025-01-04 15:44 | MHC.PC.OV ---
Vital Signs 01/04/25 15:46 Height 5 ft Weight 148 lb 4 oz BMI 28.9 BP 120/80 Blood Pressure Location Lt brachial Position Sitting Pulse 64 Pulse Source Pulse Oximeter Temp 97.3 F Temp Source Temporal Artery Scan Pulse Oximetry (%) 98 Oxygen Delivery Method Room Air Intake Visit Reasons: f/u asthma Intake Note: Patient is here to follow up on Asthma. Deputy K 9 Required: No Kitchen Food Server: Not Required per policy Accompanied by: Self / Same As Patient Allergies Sulfa (Sulfonamide Antibiotics) [SULFA (SULFONAMIDE ANTIBIOTICS)] Allergy (Unknown, Verified 01/04/25 15:46) unk Sulfa Allergy (Intermediate, Uncoded 01/04/25 15:46) Hives Medication List - Last Reconciled 01/04/25 by Pema Warner PA-C albuterol sulfate 90 mcg/actuation 1 inh inhalation QID PRN bupropion HCl XL 150 mg PO QAM clonidine HCl ER 0.1 mg PO DAILY famotidine 10 mg PO BEDTIME fluticasone propionate 44 mcg/actuation 1 puff inhalation BID gabapentin 100 mg PO DAILY PRN levonorgestrel (Plan B One-Step) 1.5 mg PO ONCE loratadine (Allergy Relief (loratadine)) 10 mg PO DAILY sertraline 100 mg PO DAILY Tobacco use date assessed: 01/04/25 Dental Screening Dental Screen Date: 01/04/25 Did you have a dental visit in the last 12 months?: No Did you have a dental problem in the last 6 months where you did not have access to dental care?: No Was dental information given to patient?: Patient has dentist HPI f/u asthma HPI Details 29-year-old female with past medical history of PTSD, asthma, anxiety, depression, ADHD last seen October 2024 coming in for follow up.? In review of the notes, patient was seen in [facility] 12/15/2024 for asthma exacerbation given prednisone and advised his follow with albuterol as needed and schedule ICS. Presenting with sinus congestion and asthma management. She reports a history of asthma, which is now well-controlled with the use of a steroid inhaler. She has not felt the need to use an emergency Albuterol inhaler in the last two weeks. The patient is experiencing significant sinus congestion for a couple of weeks, impacting her daily activities, and has been unresponsive to nasal sprays and allergy medications. [facility], [facility] Surgical History [place] teeth removed Family History Mother Lupus Father No problems noted. Maternal Grandmother Lupus Social History Housing: Apartment Alcohol intake: never Patient Tobacco Use Status: Never used Tobacco e-Cigarette/Vaping Use: Never Used Second Hand Smoke Exposure: No service: No Current occupational status: employed Cognitive needs: No Hearing needs: No Vision needs: Yes (Glasses) Female Reproductive History Menstrual Age of Menarche: 15 Questionnaire PHQ-9 Over the last 2 weeks, how often have you been bothered by any of the following problems? 1. Little interest or pleasure in doing things: not at all 2. Feeling down, depressed, or hopeless: not at all 3. Trouble falling or staying asleep, or sleeping too much: not at all 4. Feeling tired or having little energy: not at all 5. Poor appetite or overeating: not at all 6. Feeling bad about yourself - or that you are a failure or have let yourself or your family down: not at all 7. Trouble concentrating on things, such as reading the newspaper or watching television: not at all 8. Moving or speaking so slowly that other people could have noticed. Or the opposite - being so fidgety or restless that you have been moving around a lot more than usual: not at all 9. Thoughts that you would be better off or of hurting yourself in some way: not at all Total score: 0 Depression Screening Interpretation: Negative Depression Screening Done: Yes Source: Developed by Drs. Memo Rea, Maya Jean Baptiste, Matthew Jameson and colleagues, with an educational tiffanie from [employer]. Thrive Questionnaire Date Thrive assessed: 01/04/25 AUDIT C Alcohol Use Questionnaire (AUDIT-C) 1. How often do you have a drink containing alcohol?: Monthly or less 2. How many drinks containing alcohol do you have on a typical day when you are drinking?: 1 or 2 Total Score: 1 DESIRAE-7 AMB Questionnaire DESIRAE-7 Date DESIRAE - 7 assessed: 01/04/25 Feeling nervous, anxious, or on edge: 0 = Not at all Not being able to stop or control worryin = Not at all Worrying too much about different things: 0 = Not at all Trouble relaxin = Not at all Being so restless that it is hard to sit still: 0 = Not at all Becoming easily annoyed or irritable: 0 = Not at all Feeling afraid as if something awful might happen: 0 = Not at all Total DESIRAE-7 score (0-4 normal; 5-9 mild; 10-14 moderate; 15-21 severe): 0 Source: Developed by Drs. Memo Rea, Maya Jean Baptiste, Matthew Jameson and colleagues, with an educational tiffanie from [employer]. Review of Systems Const Denies body aches, Denies chills, Denies fever(s), Denies headache(s) and Denies poor appetite Eyes Reports no additional complaints ENT Denies dysphagia, Denies dizziness, Denies headache(s) and Denies odynophagia Card Denies chest pain, Denies syncope, Denies edema, Denies irregular heart rhythm, Denies lightheadedness and Denies dyspnea Resp Denies cough and Denies dyspnea GI Denies abdominal pain, Denies constipation, Denies dysphagia, Denies diarrhea, Denies nausea, Denies odynophagia and Denies vomiting Reports no additional complaints Musc Reports no additional complaints and Denies abnormal gait Skin/Breast Reports system reviewed and no additional complaints, except as documented Neuro Denies abnormal gait, Denies dizziness, Denies syncope and Denies headache(s) Psych Reports no additional complaints Physical exam (Primary Care) Vital Signs: Last Vital Signs Temp 97.3 F 01/04/25 15:46 Pulse 64 01/04/25 15:46 BP 120/80 01/04/25 15:46 Pulse Ox 98 01/04/25 15:46 Oxygen Delivery Method Room Air 01/04/25 15:46 BMI result Body Mass Index 28.9 Tobacco/Smoking Status: Tobacco use Status Tobacco use date assessed 01/04/25 01/04/25 15:50 Patient Tobacco Use Status Never used Tobacco 01/04/25 15:50 e-Cigarette/Vaping Use Never Used 01/04/25 15:50 PHQ-9: PHQ-9 Score PHQ-9: Total score 0 01/04/25 15:51 Depression Screening Interpretation: Negative Thrive Assessment: Date of Thrive Assessment Date Thrive assessed 01/04/25 01/04/25 15:50 Const General: cooperative, healthy appearing, comfortable and no acute distress Orientation/consciousness: patient oriented x3 HENMT Head: Yes normocephalic Ears: hearing grossly normal bilaterally General nose exam: Normal external nose present Eyes General: appearance normal, both eyes and all related structures Conjunctivae: conjunctivae normal Neck Neck: Yes full ROM and Yes no lymphadenopathy Resp Effort & Inspection: normal respiratory effort Auscultation: clear to auscultation bilaterally, no crackles, no rales, no rhonchi and no wheezes Cardio Rate: regular rate Rhythm: regular rhythm Skin General skin exam: no rashes or lesions noted Neuro General: patient oriented x3 Gait exam (Neuro): Normal gait present Extrem General: Yes normal to inspection, Yes full ROM and No edema Psych Affect: normal affect Attitude: cooperative Insight: Good insight present (Psych) Judgement: Good judgement present (Psych) Coding Level of Care Code Est Pt Level 3 (32136) Diagnoses GERD (gastroesophageal reflux disease) K21.9 Anxiety F41.9 Asthma J45.909 Acute sinusitis J01.90 Assessment & Plan Assessment & Plan (1) GERD (gastroesophageal reflux disease): Code(s): K21.9 - Gastro-esophageal reflux disease without esophagitis Category: Medical Plan: Avoid trigger foods such as citrus, tomato products, soda, caffeine, spicy foods and other foods that may be irritating to your stomach. Avoid laying flat 3-4 hours after eating and elevate the head of the bed 30 degrees to prevent acid from moving into the esophagus. No longer using famotidine. (2) Anxiety: Comment: [place] Psych Code(s): F41.9 - Anxiety disorder, unspecified Category: Medical Plan: Feels stable on sertraline and Wellbutrin. (3) Asthma: Code(s): J45.909 - Unspecified asthma, uncomplicated Category: Medical Plan: Asthma currently controlled on present medications. Continue on inhaled corticosteroid and albuterol as needed.. Avoid triggers such as allergies. (4) Acute sinusitis: Code(s): J01.90 - Acute sinusitis, unspecified Category: Medical Plan: Patient having worsening congestion over the last 3 weeks not responsive to saline spray or sinus rinses. The patient received a prescription for a Z-Tj to address her sinus infection and was encouraged to continue current supportive therapies. She is advised to remain in communication should symptoms persist or worsen. Plan This note was constructed using voice recognition software. While every effort has been made to ensure accuracy and etcher machine, still areas may have been included sometimes these areas may affect the content or meeting of the given symptoms. Total time spent caring for the patient today was 20 minutes. This includes time spent before the visit reviewing the chart, time spent during the visit, and time spent after the visit and documentation. Medications: New azithromycin For 500 mg dose pack: take 500 mg once daily for 3 days PO 3 tabs 0RF
[2025-01-04 15:46] VITALS: BP 120/80; PULSE 64; TEMP 36.3; O2SAT 98; BMI 28.9
== END 2025-01-04 16:07 | disposition home or self-care (01) ==
DX: K21.9 Gastro-esophageal reflux disease without esophagitis (principal); F41.9 Anxiety disorder, unspecified; J45.909 Unspecified asthma, uncomplicated; J01.90 Acute sinusitis, unspecified

== ENCOUNTER 2025-06-17 15:32 | Outpatient (AMB) | payer BC, SELFPAY ==
--- OUTSIDE RECORDS SUMMARY | 2025-06-17 15:37 | XMS_ITS | Clinical Summary ---
Author Organization [facility] ity Address [address] [place] [address] Care Team Providers Care Historical Society Director Name Role Phone Unavailable Primary Care Provider [...] Vaccine ( - 2023-2 5 season) 2024 Depression Screening 11/18/2024 Influenza Vaccine (#1) 2025 HIB Vaccines Aged Out No longer eligi [...] age to complete this topic Meningococcal B Vaccine Aged Out No l onger eligible based on patient's age to complete this topic Pneumococcal Vaccine: Pediat rics (0 to 5 Years) and At-Risk Patients (6 to 49 Years) Aged Out No longer eligible b ased on patient's age to complete this topic RSV Immunization Patients Un steve 20 months Aged Out No longer eligible b ased on patient's age to complete this topic Varicella Vaccines Aged Out No longer eligible based on patient's age to complete this topic
--- OUTSIDE RECORDS SUMMARY | 2025-06-17 15:37 | XMS_ITS | Clinical Summary ---
Author Organization [facility] Address [address] [place] [id number] Phone Care Team Providers Care Clinical Systems Educator Name Role Phone Unknown, Unknown Primary Care Provider Lio watt Allergies Active Allergy Reactions Criticality Noted Date Comments Sulfa (Sulfonamide Antibiotics) 04/2018 Medications busPIRone (BUSPAR) 5 MG tablet Take 5 mg by mouth 3 (three) times a day. Active HYDROXYZINE HCL ORAL daily as needed. Active butalbital-acet aminophen-caffe ine-codeine (FIORICET WITH CODEINE) [id number] mg Cap Take 1 capsule by mouth every 4 (four) hours as needed. 15 capsule 02/21/2018 Active Active Problems No known active problems Social History Tobacco Use Types Packs/Day Years Used Date Smoking Tobacco: Never Smokeless Tobacco: Never Alcohol Use Standard Drinks/Week Comments No 0 (1 standard drink = 0.6 oz pur e alcohol) Education Answer Date Recorded Are you interested in more education? Not on alysha e 03/15/2023 Are you concerned about learning? Not on file 03/15/2023 No 03/15/2023 No 03/15/2023 Digital Access Answer Date Recorded No 04/13/2023 No 04/13/2023 No 04/13/2023 Reliable internet access at home? Not on file 04/13/2023 Device with a working camera? Not on file Comments Unknown Sex and Gender Information Value Date Recorded Sex Assigned at Female 02/21/2018 7:02 PM EDT Legal Sex Female 12:54 PM EST Gender Identity Female 02/21/2018 7:02 PM EDT Sexual Orientation Choose not to disclose 2017 7:02 PM EDT Last Filed Vital Signs Vital Sign Reading Time Taken Comments Blood Pressure 120/76 02/21/2018 6:59 PM EDT Pulse 65 02/21/2018 6:59 PM EDT Temperature 36.7 C (98 F) 02/21/2018 6:59 PM EDT Respiratory Rate 16 02/21/2018 6:59 PM EDT Oxygen Saturation 98% 02/21/2018 6:59 PM EDT Inhaled Oxygen Concentration - - Weight 63.5 kg (140 lb) 02/21/2018 6:59 PM EDT Height 152.4 cm (5') 02/21/2018 6:59 PM EDT Body Mass Index 27.34 02/21/2018 6:59 PM EDT Plan of Treatment Health Maintenance Due Date Last Done Comments DEPRESSION SCREENING 2009 HEPATITIS C SCREENING 2015 HIV ONE-TIME SCREENING (18-6 5 YEARS) 2015 MENINGOCOCCAL VACCINES (B) ( 2 of 2 - Bexsero SCDM 2-dose series) 08/08/2018 02/05/2018 PAP SMEAR 2018 SMOKING STATUS SCREENING (On ce After 26 Yrs) 2023 COVID-19 VACCINE (1 - 2023-2 5 season) 2024 Adult Td,Tdap Booster 03/22/2030 03/22/2020 HEPATITIS A VACCINES Aged Out No long er eligible based on patient's age to complete this topic HIB VACCINES Aged Out No longer eligi ble based on patient's age to complete this topic MENINGOCOCCAL VACCINES (ACWY) Aged Out No longer eligible based on patient's age to complete this topic PNEUMOCOCCAL VACCINES (0-49 years) Aged Out No longer eligible based on patient's age to complete this topic Medical Devices Not on file Insurance [facility] [address] [address] [place] [address] [place] [address] [place] [address] Care Teams Clinical Systems Educator Relationship Specialty Start Date End Date Unknown, Unknown, MD PCP - General 02/21/18 Additional Source Comments The information contained in this document represents components of the legal health record. It is not the complete legal health record.[facility]
--- NOTE | 2025-06-17 16:02 | A.OFFPC_ITS ---
Vital Signs 06/17/25 16:05 Height 5 ft Weight 148 lb 8 oz BMI 29.0 BP 110/72 Blood Pressure Location Lt brachial Position Sitting Pulse 86 Pulse Source Pulse Oximeter Temp 97.3 F Temp Source Temporal Artery Scan Pulse Oximetry (%) 96 Oxygen Delivery Method Room Air Intake Visit Reasons: back and abdominal pain Intake Note: Patient is here to follow up on Back and abdominal pain. Engineering And Operations Director Required: No Bioinformatics Support Specialist: Not Required per policy Accompanied by: Self / Same As Patient Allergies Sulfa (Sulfonamide Antibiotics) (SULFA (SULFONAMIDE ANTIBIOTICS)) Allergy (Unknown, Verified 06/17/25 16:47) unk Sulfa Allergy (Intermediate, Uncoded 06/17/25 16:47) Hives Medication List - Last Reconciled 06/17/25 by Ebenezer Mondragon MD albuterol sulfate 90 mcg/actuation 1 inh inhalation QID PRN bupropion HCl XL 150 mg PO QAM clonidine HCl ER 0.1 mg PO DAILY fluticasone propionate 44 mcg/actuation 1 puff inhalation BID gabapentin 100 mg PO DAILY PRN levonorgestrel (Plan B One-Step) 1.5 mg PO ONCE loratadine (Allergy Relief (loratadine)) 10 mg PO DAILY omeprazole 20 mg PO BID sertraline 100 mg PO DAILY Tobacco use date assessed: 06/17/25 Dental Screening Dental Screen Date: 01/04/25 HPI back and abdominal pain HPI Details 29-year-old female presents to the [facility] for a sick visit. For the past week, patient has been complaining of abdominal pain. Intermittent pain relieved by food. Occasional belching and burping. Patient reports no symptoms of vomiting. Occasional nausea. No fevers or chills. Occasional pain ra diating to the back. Has taken NSAIDs last night. [facility] Surgical History [place] teeth removed Family History Mother Lupus Father No problems noted. Maternal Grandmother Lupus Social History Housing: Apartment Alcohol intake: never Patient Tobacco Use Status: Never used Tobacco e-Cigarette/Vaping Use: Never Used Second Hand Smoke Exposure: No service: No Current occupational status: employed Cognitive needs: No Hearing needs: No Vision needs: Yes (Glasses) Female Reproductive History Menstrual Age of Menarche: 15 Questionnaire PHQ-9 Over the last 2 weeks, how often have you been bothered by any of the following problems? 1. Little interest or pleasure in doing things: several days 2. Feeling down, depressed, or hopeless: several days 3. Trouble falling or staying asleep, or sleeping too much: more than half the days 4. Feeling tired or having little energy: more than half the days 5. Poor appetite or overeating: several days 6. Feeling bad about yourself - or that you are a failure or have let yourself or your family down: not at all 7. Trouble concentrating on things, such as reading the newspaper or watching television: not at all 8. Moving or speaking so slowly that other people could have noticed. Or the opposite - being so fidgety or restless that you have been moving around a lot more than usual: not at all 9. Thoughts that you would be better off or of hurting yourself in some way: not at all Total score: 7 Depression Screening Interpretation: Positive Depression Screening Done: Yes Source: Developed by Drs. Memo Rea, Maya Jean Baptiste, Matthew Jameson and colleagues, with an educational tiffanie from [email or web address]. Thrive Questionnaire Date Thrive assessed: 01/04/25 I am a: Patient What is your living situation today?: I have a steady place to live Within the past 12 months, did the food you bought not last and you didn't have the money to get more?: Never true Within the past 12 months, did you worry whether your food would run out before you got money to buy more?: Never true Do you have trouble paying for medicines?: No Do you have trouble getting transportation to medical appointments?: No Do you have trouble paying your heating and electricity bill?: No Do you have trouble taking care of your child, family member or friend?: No Do you have trouble with day-to-day activities such as bathing, preparing meals, shopping, managing finances, etc.?: No Are you currently unemployed and looking for a job?: No Are you interested in more education?: Yes Please select the resources that you would like help with: None Currently or been in a relationship where the following occur: I choose not to answer THRIVE Score: 0 AUDIT C Alcohol Use Questionnaire (AUDIT-C) 1. How often do you have a drink containing alcohol?: Never Total Score: 0 DESIRAE-7 AMB Questionnaire DESIRAE-7 Date DESIRAE - 7 assessed: 01/04/25 Feeling nervous, anxious, or on edge: 1 = Several days Not being able to stop or control worryin = Several days Worrying too much about different things: 1 = Several days Trouble relaxin = Several days Being so restless that it is hard to sit still: 1 = Several days Becoming easily annoyed or irritable: 1 = Several days Feeling afraid as if something awful might happen: 1 = Several days Total DESIRAE-7 score (0-4 normal; 5-9 mild; 10-14 moderate; 15-21 severe): 7 Source: Developed by Drs. Memo Rea, Maya Jean Baptiste, Matthew Jameson and colleagues, with an educational tiffanie from [email or web address]. Physical exam (Primary Care) Vital Signs: Last Vital Signs Temp 97.3 F 06/17/25 16:05 Pulse 86 06/17/25 16:05 BP 110/72 06/17/25 16:05 Pulse Ox 96 06/17/25 16:05 Oxygen Delivery Method Room Air 06/17/25 16:05 BMI result Body Mass Index 29.0 Tobacco/Smoking Status: Tobacco use Status Tobacco use date assessed 06/17/25 06/17/25 16:10 Patient Tobacco Use Status Never used Tobacco 06/17/25 16:04 e-Cigarette/Vaping Use Never Used 06/17/25 16:04 PHQ-9: PHQ-9 Score PHQ-9: Total score 7 06/17/25 16:04 Depression Screening Interpretation: Positive Thrive Assessment: Date of Thrive Assessment Date Thrive assessed 01/04/25 06/17/25 16:04 Currently or been in a relationship where the following occur: I choose not to answer Const General: cooperative and healthy appearing Nutritional Appearance: well nourished Orientation/consciousness: patient oriented x3 Limitations: no limitations HENMT Head: Yes normal to inspection Eyes General: appearance normal, both eyes and all related structures Neck Neck: Yes normal visual inspection Chest Chest palpation & inspection: normal palpation of entire chest wall Resp Effort & Inspection: normal respiratory effort Neuro General: patient oriented x3 Coding Level of Care Code Est Pt Level 3 (39498) Complex EM visit Add On G2211 Diagnoses GERD (gastroesophageal reflux disease) K21.9 Assessment & Plan Assessment & Plan (1) GERD (gastroesophageal reflux disease): Code(s): K21.9 - Gastro-esophageal reflux disease without esophagitis Category: Medical Plan: Symptomatic treatment with PPIs. If symptoms do not improve to follow-up here. Medications: New omeprazole 20 mg PO BID 60 caps 0RF Discontinued famotidine Discontinued Reason: Doctor's Order 10 mg PO BEDTIME 30 tabs 2RF
[2025-06-17 16:05] VITALS: BP 110/72; PULSE 86; TEMP 36.3; O2SAT 96; BMI 29.0
== END 2025-06-17 16:30 | disposition home or self-care (01) ==
LOC: HO.HMCH 15:33
PROVIDERS: Visit Provider Internal Medicine
DX: K21.9 Gastro-esophageal reflux disease without esophagitis (principal)

== ENCOUNTER 2025-08-02 11:46 | Emergency (ER) | payer BC, SELFPAY ==
--- NOTE | ~2025-08-02 | US_ITS ---
CLINICAL HISTORY: left sided pain Pelvic ultrasound. Transabdominal and transvaginal images were obtained. No comparison provided. Findings: The uterus measures 7.9 x 2.5 x 3.5 cm. No uterine fibroids are seen. Endometrial thickness 10 mm. The ovaries are normal in size. Right there are several small follicles. There is a 2 cm collapsing follicle. There are several small follicles in the left ovary. There is a physiologic amount of free fluid. Impression: Collapsing follicle right ovary. This document has been electronically signed by: Aly Santamaria MD on 08/02/2025 19:54:58
[2025-08-02 12:19] VITALS: BP 112/69; PULSE 63; RESP 16; TEMP 36.9; O2SAT 98; BMI 28.9
--- NOTE | 2025-08-02 12:23 | ED.GENADULT ---
HPI - General Adult General Chief complaint: Abdominal Pain Stated complaint: sharp belly pain Time Seen by Provider: 08/02/25 18:06 History of Present Illness ED Provider: Pat HECK narrative: The patient is a 29-year-old female who comes to the emergency room for evaluation of left lower abdominal pain. She says that the pain began during the night last night. It woke her from sleep. She has had the pain all day today. It is worse when she walks. She has never had pain like this before. It is not associated with any nausea or vomiting. No vaginal discharge. The patient says that her last menstrual period came later than she expected. Her last menstrual period was around July 07. She says that typically her menses are extremely regular. She has not been sexually active recently and does not think she could be . She has no vaginal discharge associated with this pain. She has no urinary symptoms associated with this pain. She has had no nausea or vomiting associated with this pain. She has had no loss of appetite. The patient says that she went to an urgent care center earlier today because of this pain and was advised to come to an emergency room to see if she might have an ovarian cyst. No fever, sweats, chills. Related Data Home Medications ?Medication ?Instructions ?Recorded ?Confirmed bupropion HCl 150 mg 24 hr tablet, 150 mg PO QAM 07/31/23 06/17/25 extended release clonidine HCl 0.1 mg 0.1 mg PO DAILY 08/04/24 06/17/25 tablet,extended release,12 hr gabapentin 100 mg capsule 100 mg PO DAILY PRN 08/04/24 06/17/25 sertraline 100 mg tablet 100 mg PO DAILY 08/04/24 06/17/25 Previous Rx's ?Medication ?Instructions ?Recorded levonorgestrel 1.5 mg tablet (Plan 1.5 mg PO ONCE #1 tab 10/07/24 B One-Step) albuterol sulfate 90 mcg/actuation 1 inh inhalation QID PRN shortness 11/03/24 aerosol inhaler of breath or wheezing #6.7 grams fluticasone propionate 44 1 puff inhalation BID #10.6 grams 12/11/24 mcg/actuation HFA aerosol inhaler loratadine 10 mg capsule (Allergy 10 mg PO DAILY #90 caps 12/11/24 Relief (loratadine)) omeprazole 20 mg capsule,delayed 20 mg PO BID #60 caps 06/17/25 release Allergies Allergy/AdvReac Type Severity Reaction Status Date / Time Sulfa (Sulfonamide Allergy Unknown unk Verified 08/02/25 12:21 Antibiotics) (SULFA (SULFONAMIDE ANTIBIOTICS)) Sulfa Allergy Intermediate Hives Uncoded 08/02/25 12:21 Review of Systems Review of Systems: Yes all other systems are reviewed and are negative [facility] Past Medical History Surgical History [place] teeth removed Family History Family History Mother Lupus Father No problems noted. Maternal Grandmother Lupus Social History Social History Housing: Apartment Alcohol intake: never Patient Tobacco Use Status: Never used Tobacco e-Cigarette/Vaping Use: Never Used Second Hand Smoke Exposure: No service: No Current occupational status: employed Cognitive needs: No Hearing needs: No Vision needs: Yes (Glasses) Physical Exam ED Vital Signs: Vital Signs - 24 hr 08/02/25 18:27 08/02/25 20:33 Temperature 98.4 F 98.4 F Pulse Rate 63 63 Respiratory Rate 16 16 Blood Pressure 112/69 112/69 Pulse Oximetry 98 98 BMI result Body Mass Index 28.9 Const Other: The patient is awake, alert, pleasant, cooperative. She does not appear uncomfortable or in distress. She does not appear ill. Orientation/consciousness: patient oriented x3 HENMT Other: The face is symmetrical. Mucous membranes moist. Eyes Other: Pupils are round equal, conjunctivae are clear, extraocular movements intact Neck Neck: Yes normal visual inspection and Yes full ROM Resp Effort & Inspection: normal respiratory effort Auscultation: clear to auscultation bilaterally Cardio Rate: regular rate Rhythm: regular rhythm Heart sounds: S1 normal heart sound present and S2 normal heart sound present GI Other: The patient has a left lower quadrant abdominal tenderness. No rebound or guarding. Back/Spine/Pelvis Other: No CVA percussion tenderness. Skin Other: The skin is dry and unremarkable Neuro Other: The patient has a an entirely nontoxic demeanor. General: patient oriented x3, tone normal, moves all extremities, no focal motor deficits and CN's II-XI intact bilaterally Extrem Other: No peripheral edema Course Course Course Narrative: This is a rapid medical exam performed by Zora Torres NP: Additional HPI, ROS, PE not included below will be deferred to primary provider. Patient is a 29-year-old female referred to the emergency department by urgent care for evaluation of left lower quadrant abdominal pain since yesterday. Denies nausea, vomiting, diarrhea, constipation. Pain worsens when bearing down to urinate. Plan: Labs, UA Medications Administered Discontinued Medications Generic Name Dose Route Start Last Admin Trade Name Freq PRN Reason Stop Dose Admin Acetaminophen 975 mg 08/02/25 20:10 08/02/25 20:29 Acetaminophen 325 Mg Tablet PO 08/02/25 20:11 975 mg ONCE ONE Administration Ibuprofen 400 mg 08/02/25 20:10 08/02/25 20:29 Ibuprofen 400 Mg Tablet PO 08/02/25 20:11 400 mg ONCE ONE Administration Medical Decision Making Medical Decision Making MDM Narrative: the patient is a 29-year-old female with no significant history of abdominal issues or surgery who says that she woke up with left lower quadrant abdominal pain at some point early this morning. She says the pain does not feel similar to pain of menses. She is not having any vaginal bleeding or vaginal discharge. She has had no fever, sweats, chills. She has had no nausea or vomiting. She has had no sense of a loss of appetite. She says the pain is worse when she walks but otherwise there does not seem to be any associated symptoms with this pain. No urinary symptoms. No flank pain. Clinically the patient does not appear ill. She has a normal CBC with a normal white count and differential. test is negative. She has a urinalysis that shows no ketones. An ultrasound of the pelvis was done to possibly look for a left ovarian cyst (clinically this presentation was not consistent with ovarian torsion). The report of the pelvic ultrasound is as follows: Findings: The uterus measures 7.9 x 2.5 x 3.5 cm. No uterine fibroids are seen. Endometrial thickness 10 mm. The ovaries are normal in size. Right there are several small follicles. There is a 2 cm collapsing follicle. There are several small follicles in the left ovary. There is a physiologic amount of free fluid. Impression: Collapsing follicle right ovary. I feel this is essentially a nondiagnostic ultrasound. The patient is discomfort seems to be exclusively in the left lower abdomen. I explained to the patient that I did not feel the ultrasound gave a good explanation for her pain. I further explained that given her normal white count and differential, given her urinalysis which shows no ketones, given her absence of any other associated symptoms of either nausea or anorexia or vaginal symptoms or fever that additional evaluation by CAT scan or other modality would probably not reveal any dangerous process. The patient seemed comfortable with the prospect of treating herself symptomatically with ibuprofen and acetaminophen and with a plan to return to the emergency room if any worsening conditions develop. She should follow up with the primary care doctor. Lab Data 08/02/25 12:45 08/02/25 12:45 Labs: Lab Results 08/02/25 08/02/25 Range/Units 12:45 18:17 WBC 7.1 (4.8-10.8) X10*3/uL RBC 4.34 (4.20-5.50) X10*6/uL Hgb 13.2 (12.0-16.0) g/dl Hct 38.8 (37.0-47.0) % MCV 89.4 (80.0-98.0) fL MCH 30.4 (27.0-33.0) pg MCHC 34.0 (31.0-35.0) g/dl RDW 12.1 (11.0-16.0) % Plt Count 235 (160-400) X10*3/uL MPV 9.1 L (9.4-12.3) fL Immature Gran % (Auto) 0.3 (0.0-0.4) % Neut % (Auto) 59.7 (45-73) % Lymph % (Auto) 29.5 (20-40) % [place] % (Auto) 6.4 (2-11) % Eos % (Auto) 3.7 (0-4) % Baso % (Auto) 0.4 (0-2) % Lymph # (Auto) 2.1 (1.2-4.9) X10*3/uL [place] # (Auto) 0.5 (0.1-1.2) X10*3/uL Eos # (Auto) 0.3 (0.0-0.4) X10*3/uL Baso # (Auto) 0.0 (0.0-0.2) X10*3/uL Abs Immat Gran (auto) 0.02 (0.00-0.03) X10*3/uL Absolute Neuts (auto) 4.2 (2.0-8.3) x10*3/uL Absolute Nucleated RBC 0.000 (0.0-0.012) X10*3/uL Nucleated RBC % (auto) 0.0 (0.0-0.2) /100WBC Sodium 140 (135-145) mmol/L Potassium 4.0 (3.3-5.1) mmol/L Chloride 108 (96-108) mmol/L Carbon Dioxide 26 (22-29) mmol/L Anion Gap 10 L (12-20) BUN 7 L (9-16) mg/dL Creatinine 0.58 (0.5-1.4) mg/dL Estim Creat Clear Calc 124.5 Estimated GFR > 60 Random Glucose 84 (60-115) mg/dL Calcium 9.2 D (8.4-10.2) mg/dL Total Bilirubin 0.4 (0.0-1.0) mg/dL AST 19 (5-31) U/L ALT 15 (0-31) U/L Alkaline Phosphatase 70 (39-117) U/L Total Protein 7.4 (6.5-8.0) g/dL Albumin 4.6 (3.5-5.0) g/dL Beta HCG, Quant < 2 mIU/mL Urine Color Yellow Urine Appearance Clear Urine pH 6.5 (5.0-9.0) Ur Specific [place] <= 1.005 (1.005-1.025) Urine Protein Negative (Neg-Trace) mg/dL Urine Glucose (UA) Negative (Negative) mg/dL Urine Ketones Negative (Negative) mg/dL Urine Blood Negative (Negative) Urine Nitrite Negative (Negative) Ur Leukocyte Esterase Small (1+) H (Negative) Urine RBC 0-2 (0-2) /HPF Urine WBC 6-10 H (0-5) /HPF Ur Squamous Epith Cells 0-2 (0-2) /HPF Urine Bacteria 1+ (None Seen) Hyaline Casts 0-2 (0-2) /LPF Discharge Plan Discharge Clinical Impression: Left lower quadrant abdominal pain Patient Disposition: Home, Self-Care Additional Instructions: Your testing in the emergency room is not indicating any obvious source of your pain. You do not seem to have an ovarian cyst. Your blood testing and urine testing are unremarkable. You may use ibuprofen and acetaminophen as needed for pain. Please plan on making a follow up appointment with your regular doctor to discuss this episode further. If you feel significantly worse or you develop any additional symptoms please return to the emergency room for re-evaluation. Prescriptions: No Action fluticasone propionate 44 mcg/actuation HFA aerosol inhaler 1 puff inhalation BID Qty: 10.6 2RF Rx Instructions: administer with spacer Allergy Relief (loratadine) 10 mg capsule 10 mg PO DAILY Qty: 90 2RF bupropion HCl 150 mg tablet extended release 24 hr 150 mg PO QAM gabapentin 100 mg capsule 100 mg PO DAILY PRN sertraline 100 mg tablet 100 mg PO DAILY clonidine HCl 0.1 mg tablet extended release 12 hr 0.1 mg PO DAILY levonorgestrel [Plan B One-Step] 1.5 mg tablet 1.5 mg PO ONCE Qty: 1 4RF albuterol sulfate 90 mcg/actuation HFA aerosol inhaler 1 inh inhalation QID PRN (Reason: shortness of breath or wheezing) Qty: 6.7 0RF omeprazole 20 mg capsule,delayed release(DR/EC) 20 mg PO BID Qty: 60 0RF Referrals: Pema Warner PA-C [Primary Care Provider, Internal Medicine] Interventions: ED Discharge Assessment Last Done: 08/02/25 20:33 Discharge Date/Time: 08/02/25 20:34 Print Language: Welsh
[2025-08-02 12:49] LABS: MANUAL DIFF FLAG NO
[2025-08-02 12:53] LABS: Hematocrit 38.8 % (37.0-47.0); Hemoglobin 13.2 g/dl (12.0-16.0); Imm Gran Abs Auto 0.02 X10*3/uL (0.00-0.03); Imm Gran Pct Auto 0.3 % (0.0-0.4); Lymphocytes Absolute Auto 2.1 X10*3/uL (1.2-4.9); Mean Corpuscular HGB Conc 34.0 g/dl (31.0-35.0); Mean Corpuscular Hemoglobin 30.4 pg (27.0-33.0); Mean Corpuscular Volume 89.4 fL (80.0-98.0); NRBC Abs Auto 0.000 X10*3/uL (0.0-0.012); NRBC Pct Auto 0.0 /100WBC (0.0-0.2); Platelet Count 235 X10*3/uL (160-400); Red Blood Count 4.34 X10*6/uL (4.20-5.50); White Blood Count 7.1 X10*3/uL (4.8-10.8)
[2025-08-02 13:17] LABS: Alanine Aminotransferase 15 U/L (0-31); Albumin Level 4.6 g/dL (3.5-5.0); Alkaline Phosphatase 70 U/L (39-117); Anion Gap 10 (12-20); Aspartate Amino Transferase 19 U/L (5-31); Blood Urea Nitrogen 7 mg/dL (9-16); Calcium 9.2 mg/dL (8.4-10.2); Carbon Dioxide 26 mmol/L (22-29); Chloride 108 mmol/L (96-108); Creatinine Clr Calc Pharmacy 124.5; Estimated Glomerular Filt Rate > 60; Potassium 4.0 mmol/L (3.3-5.1); Sodium 140 mmol/L (135-145); Total Protein 7.4 g/dL (6.5-8.0)
[2025-08-02 18:24] LABS: Appearance Urine Clear; Glucose Urine UA Negative (Negative); PH 6.5 (5.0-9.0); Specific Gravity - Urine <= 1.005 (1.005-1.025); UMIC TRIGGER UACC YES
[2025-08-02 18:27] VITALS: BP 112/69; PULSE 63; RESP 16; TEMP 36.9; O2SAT 98
[2025-08-02 18:27] LABS: UACC Culture Trigger YES
[2025-08-02 20:33] VITALS: BP 112/69; PULSE 63; RESP 16; TEMP 36.9; O2SAT 98
--- OUTSIDE RECORDS SUMMARY | 2025-08-02 21:49 | XMS_ITS | Clinical Summary ---
Author Organization [facility] Address [address] [place] [phone] Phone Care Team Providers Care Kiln Setter Name Role Phone Unknown, Unknown Primary Care Provider Lio watt Allergies Active Allergy Reactions Criticality Noted Date Comments Sulfa (Sulfonamide Antibiotics) 04/2018 Medications busPIRone (BUSPAR) 5 MG tablet Take 5 mg by mouth 3 (three) times a day. Active HYDROXYZINE HCL ORAL daily as needed. Active butalbital-acet aminophen-caffe ine-codeine (FIORICET WITH CODEINE) 63-321-61-30 mg Cap Take 1 capsule by mouth [...] SCREENING (On ce After 26 Yrs) 2023 INFLUENZA VACCINE (#1) 2025 , 01/13/2018 COVID-19 VACCINE (1 - 2023-2 5 season) 2025 Adult Td,Tdap Booster 03/22/2030 03/22/2020 HEPATITIS A VACCINES Aged Out No long er eligible based on patient's age to complete this topic HIB VACCINES Aged Out No longer eligi ble based on patient's age to complete this topic MENINGOCOCCAL VACCINES (ACWY) Aged Out No longer eligible based on patient's age to complete this topic PNEUMOCOCCAL VACCINES (0-49 years) Aged Out No longer eligible b ased on patient's age to complete this topic Medical Devices Not on file Insurance [facility] [place] [address] [address] [place] [address] [place] [address] [facility] Care Teams Kiln Setter Relationship Specialty Start Date End Date Unknown, Unknown, PCP - General 02/21/18 Additional Source Comments The information contained in this document represents components of the legal health record. It is not the complete legal health record.[facility]
--- OUTSIDE RECORDS SUMMARY | 2025-08-02 21:49 | XMS_ITS | Clinical Summary ---
Author Organization [facility] ity Address [address] [place] [address] Care Team Providers Care Chair Car Attendant Name Role Phone Unavailable Primary Care Provider [...] Cervical Cancer Screening: P ap Smear 2018 Depression Screening 11/18/2024 COVID-19 Vaccine (1 - 2023-2 5 season) 2025 Influenza Vaccine (#1) 2025 HIB Vaccines Aged [...]
--- OUTSIDE RECORDS SUMMARY | 2025-08-02 21:49 | XMS_ITS | Encounter Summary ---
Author Organization [facility] Address [address] [facility] [address] [place] [phone] Phone Care Team Providers Care Pumper Head Name Role Phone Unknown, Unknown Primary Care Provider Darleen Winston MD Unavailable [phone] Encounter Details Date Type Department Care Team (Late st Contact Info) Description 02/21/2018 Procedure Pass [facility], Ct Scan - [facility] [address] [place] [address] Social History Tobacco Use Types Packs/Day Years Used Date Smoking Tobacco: Never Smokeless Tobacco: Never Alcohol Use Standard Drinks/Week Comments No 0 (1 standard drink = 0.6 oz pur e alcohol) Comments Unknown Sex and Gender Information Value Date Recorded Sex Assigned at Female 02/21/2018 7:02 PM EDT Legal Sex Female 12:54 PM EST Gender Identity Female 02/21/2018 7:02 PM EDT Sexual Orientation Choose not to disclose 2017 7:02 PM EDT documented as of this encounter Plan of Treatment Not on file documented as of this encounter Visit Diagnoses Not on filedocumented in this encounter Care Teams Pumper Head Relationship Specialty Start Date End Date Unknown, Unknown, PCP - General 02/21/18 Darleen Maldonado MD [address] [place] [id number] [email or web address] Assigned Provider 03/21/19 01/22/20 documented as of this encounter Additional Source Comments The information contained in this document represents components of the legal health record. It is not the complete legal health record.[facility]
== END 2025-08-02 20:34 | disposition home or self-care (01) ==
PROVIDERS: Registered Nurse Emergency; Emergency Provider Emergency Medicine
DX: R10.32 Left lower quadrant pain (principal); R10.9 Unspecified abdominal pain
CPT/HCPCS: 36415; 76830; 76856; 80053; 81001; 84702; 85025; 87086; 99284

== ENCOUNTER → 2025-08-02 18:25 | Outpatient (BNV) | payer BC, SELFPAY | PROVIDERS: Emergency Provider Emergency Medicine; Visit Provider Radiology Diagnostic Radiology | DX: N83.01 Follicular cyst of right ovary (principal) | CPT/HCPCS: 76830; 76856 ==

== ENCOUNTER 2025-10-22 13:12 | Outpatient (AMB) | payer BC, SELFPAY ==
--- NOTE | 2025-10-22 13:12 | MHC.OFFVIS ---
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 Educational Administration Teacher: Educational Administration Teacher Present (Torie) Accompanied by: Self / Same As Patient Allergies Sulfa (Sulfonamide Antibiotics) (SULFA (SULFONAMIDE ANTIBIOTICS)) Allergy (Unknown, Verified 08/02/25 12:21) unk Sulfa Allergy (Intermediate, Uncoded 08/02/25 12:21) Hives Medication List - Last Reconciled 10/22/25 by Chanel Ibarra CNM albuterol sulfate 90 mcg/actuation 1 inh inhalation QID PRN bupropion HCl XL 150 mg PO QAM clonidine HCl ER 0.1 mg PO DAILY fluticasone propionate 44 mcg/actuation 1 puff inhalation BID gabapentin 100 mg PO DAILY PRN loratadine (Allergy Relief (loratadine)) 10 mg PO DAILY omeprazole 20 mg PO BID sertraline 100 mg PO DAILY Is last menstrual period known: Yes Last menstrual period: 10/11/25 Post menopausal: No Patient : No HPI HPI 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 She is happy using condoms she is in a monogamous relationship with her partner. She has no worries at all about STIs she got fully screened last year and everything was negative and is happy with that. She is on the same mental health meds and has a psych provider and a therapist and is doing well with that. She sees her primary care provider and has been screened for things. 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 She is planning on getting her COVID vaccine if she can. She got allergy tested and was only allergic to 3 different kinds of pollen so she is on the fence about shots. [facility] Surgical History [place] teeth removed Family History Mother Lupus Father No problems noted. Maternal Grandmother Lupus Social History (Reviewed 06/17/25 @ 16:02 by FRED Chang Housing: Apartment Alcohol intake: never Patient Tobacco Use Status: Never used Tobacco e-Cigarette/Vaping Use: Never Used Second Hand Smoke Exposure: No service: No Current occupational status: employed Cognitive needs: No Hearing needs: No Vision needs: Yes (Glasses) Female Reproductive History Menstrual Age of Menarche: 15 Duration of menses: 3-5 days Date of last menstrual period: 10/11/25 control method: none Total pregnancies: 0 Date of last pap smear: 10/07/24 (negative pap smear. negative hpv ) History of abnormal pap smear: No Physical Exam Vital Signs: Last Vital Signs BP 106/62 10/22/25 13:15 BMI result Body Mass Index 30.3 Const General: healthy appearing, comfortable, no acute distress, well developed and alert Nutritional Appearance: average body habitus Orientation/consciousness: patient oriented x3 Limitations: no limitations HEENT Head: Yes normocephalic Neck Neck: Yes normal visual inspection Thyroid: Thyroid normal Chest Chest palpation & inspection: normal inspection of the chest Breast/axilla inspection: normal inspection of the breasts and normal inspection of the axillae Breast/axilla palpation: normal palpation of the breasts and normal palpation of the axillae Resp Effort & Inspection: normal respiratory effort GI Inspection: Yes normal to inspection, No Abdominal wall edema and No distended Palpation (GI): Soft to palpation and nontender External Female Exam: normal external appearance Bimanual Exam- Adnexa, other: normal adnexae, no masses, normal and No adnexal tenderness Neuro General: patient oriented x3 Assessment & Plan Assessment & Plan (1) Cervical cancer screening: Comment: History of genital warts; 10/07/2024 Pap is negative negative HPV. Code(s): Z12.4 - Encounter for screening for malignant neoplasm of cervix Category: Medical (2) Well woman exam (no gynecological exam): Code(s): Z00.00 - Encounter for general adult medical examination without abnormal findings Category: Medical (3) Uses control: Comment: Uses condoms and is happy with them and not interested in any other method at this time. Code(s): Z78.9 - Other specified health status Category: Social Hx (4) Asthma: Comment: 10/22/2025 says she is currently well-controlled with her current inhaler... Masks in high-risk situations Code(s): J45.909 - Unspecified asthma, uncomplicated Category: Medical Plan -----Discussed in this visit the following: healthy balanced diet, regular and consistent exercise, getting recommended health screens, doing the best she can for her particular health concerns, kegel exercises, pap smear screening and followup recommendations, mammography screening and SBE, normal changes in cycles in her life stage--- . She is happy using condoms for control. I reviewed her past history she got the HPV vaccine about a year before she had they exposure to the vaginal warts and she has not since that 1 was frozen off and college. She got screened for STIs last year and we reviewed all of her test results again this year and they were all negative and she has no need for any further testing at this time as she is in a completely monogamous situation and everything is good. She does have some cycle awareness and does keep track. She was curious about some of the lab work she might have had done and we reviewed them the only thing in her family history is autoimmune diseases so that could be consistent with her allergies and asthma her thyroid level was within normal limits last year when it was screened. She does see her primary care provider regularly and her mental health provider's as well., She said she fluctuates between 140 and 155 for weight. Discussed keeping safe in a high risk germ environment of a classroom. RTC 1 year. Or PRN. Coding Level of Care Code Est Pt Prev Care 18-39y([id number]) Diagnoses Cervical cancer screening Z12.4 Well woman exam (no gynecological exam) Z00.00 Uses control Z78.9 Asthma J45.909
[2025-10-22 13:15] VITALS: BP 106/62; BMI 30.3
--- OUTSIDE RECORDS SUMMARY | 2025-10-22 17:21 | XMS_ITS | Clinical Summary ---
Author Organization [facility] it Address [address] [place] [address] Care Team Providers Care Recreation Adviser Name Role Phone Unavailable Primary Care Provider [...] Cervical Cancer Screening: P ap Smear 2018 HPV Vaccines (1 - 3-dose SCD M series) 2024 Depression Screening 11/18/2024 COVID-19 Vaccine (1 - 2024-2 6 season) 2025 Influenza Vaccine (#1) 2025 RSV Immunization Adult Patie nts (1 - 1-dose 75+ series) 2072 HIB Vaccines Aged Out No longer eligi [...]
--- OUTSIDE RECORDS SUMMARY | 2025-10-22 17:21 | XMS_ITS | Clinical Summary ---
Author Organization [facility] Address [address] [place] [phone] Phone Care Team Providers Care Line Clearance Foreman Name Role Phone Unknown, Unknown Primary Care Provider Lio watt Allergies Active Allergy Reactions Criticality Noted Date Comments Sulfa (Sulfonamide Antibiotics) 04/2018 Medications busPIRone (BUSPAR) 5 MG tablet Take 5 mg by mouth 3 (three) times a day. Active HYDROXYZINE HCL ORAL daily as needed. Active butalbital-acet aminophen-caffe ine-codeine (FIORICET WITH CODEINE) 05-622-73-30 mg Cap Take 1 capsule by mouth [...] 2025 , 01/13/2018 COVID-19 VACCINE (1 - 2024-2 6 season) 2025 Adult Td,Tdap Booster 03/22/2030 03/22/2020 [...] topic Medical Devices Not on file Insurance [facility] [place] [address] [place] [address] [place] [address] [facility] Care Teams Line Clearance Foreman Relationship Specialty Start Date End Date Unknown, Unknown, PCP - General 02/21/18 Additional Source Comments The information contained in this document represents components of the legal health record. It is not the complete legal health record.[facility]
--- OUTSIDE RECORDS SUMMARY | 2025-10-22 17:21 | XMS_ITS | Encounter Summary ---
Author Organization [facility] Address [address] [facility] [address] [place] [phone] Phone Care Team Providers Care Superintendent Refuse Disposal Name Role Phone Unknown, Unknown Primary Care Provider Darleen Winston MD Unavailable [phone] Encounter Details Date Type Department Care Team (Late st Contact Info) Description 02/21/2018 Procedure Pass [facility], Ct Scan - [facility] [address] [place] [address] Social History Tobacco Use Types Packs/Day Years [...] on filedocumented in this encounter Care Teams Superintendent Refuse Disposal Relationship Specialty Start Date End Date Unknown, Unknown, PCP - General 02/21/18 Darleen Maldonado MD [address] [place] [id number] [email or web address] Insurance Assigned Provider 03/21/19 01/22/20 documented as of this encounter Additional Source Comments The information contained in this document represents components of the legal health record. It is not the complete legal health record.[facility]
== END 2025-10-22 14:53 | disposition home or self-care (01) ==
LOC: HO.HWSM 13:12
PROVIDERS: Visit Provider Advanced Practice Midwife
DX: Z01.419 Encounter for gynecological examination (general) (routine) without abnormal findings (principal); Z78.9 Other specified health status; J45.909 Unspecified asthma, uncomplicated
CPT/HCPCS: 99395